=== PATIENT | male | born 1930 | race Caucasian/White ===

== ENCOUNTER 2017-03-03 11:09 | Inpatient (IN) | payer MEDICARE, BC ==
--- NOTE | 2017-03-03 11:49 | EDM.PDOC ---
ED HISTORY OF PRESENT ILLNESS - General Chief Complaint: Fever Stated Complaint: [facility] Time Seen by Provider: 03/03/17 11:40 Source: Reports: Patient, Family, RN notes reviewed History Limitations: Reports: No limitations - History of Present Illness INITIAL COMMENTS - FREE TEXT/NARRATIVE: 86-year-old gentleman presents emergency department day complaint of fever and increasing shortness of breath, he states he's been ill for about 24 hours he denies any other symptoms known history of Parkinson's - Related Data Allergies/ADRs: Allergies Allergy/AdvReac Type Severity Reaction Status Date / Time [place] And Derivatives Allergy Cannot Verified 03/08/16 03:20 Remember morphine AdvReac Hallucinati Verified 03/08/16 03:20 ons tomato [Tomato] AdvReac Acid Reflux Verified 03/08/16 03:20 Home Meds: Home Meds Calcium Citrate/Vitamin D3 [Calcitrate + Vit D Cap (315 MG/250 UNITS)] 1 tab PO DAILY 03/25/14 [History] Folic Acid 1 mg PO ASDIRECTED 03/25/14 [History] Methotrexate Sodium [Methotrexate] 7.5 mg IJ WEEKLY 03/25/14 [History] Metoprolol Tartrate 50 mg PO BID 03/25/14 [History] Simvastatin [Zocor] 20 mg PO DAILY 03/25/14 [History] Acetaminophen [Tylenol] 650 mg PO QID PRN 05/17/15 [History] Bisacodyl [Bisacodyl] 1 tab PO DAILY 03/03/17 [History] Captopril [Captopril] 0.5 tab PO BID 03/03/17 [History] Carbidopa/Levodopa [Carbidopa-Levo 25-100 MG ODT] 1 tab PO DAILY 03/03/17 [ History] Cholecalciferol (Vitamin D3) [Vitamin D3] 1 tab PO DAILY 03/03/17 [History] Folic Acid [Folic Acid] 1 tab PO DAILY 03/03/17 [History] Furosemide 1 tab PO DAILY 03/03/17 [History] Metoprolol Tartrate [Metoprolol Tartrate] 1 tab PO DAILY 03/03/17 [History] Metoprolol Tartrate [Metoprolol Tartrate] 1 tab PO DAILY 03/03/17 [History] Mirtazapine [Mirtazapine] 0.5 tab PO DAILY 03/03/17 [History] Polyethylene Glycol 3350 [Smoothlax] 1 packet PO DAILY 03/03/17 [History] Potassium Chloride [Klor-Con] 1 packet PO DAILY 03/03/17 [History] Spironolactone [Spironolactone] 0.5 tab PO DAILY 03/03/17 [History] Tamsulosin [Flomax] 1 tab PO DAILY 03/03/17 [History] predniSONE [Prednisone] 1 tab PO DAILY 03/03/17 [History] Past Medical History Neurological History: Reports: Parkinson's Other Neuro History: headaches, right frontotemporoparietal subdermal hematoma Other Dermatologic History: open sores on lower legs, scabs on legs - Past Surgical History Other HEENT Surgeries/Procedures: tooth pulled a week ago Other Musculoskeletal Surgeries/Procedures:: bilat knee replacement Social & Family History - Tobacco Use Smoking Status *Q: Unknown Ever Smoked Second Hand Smoke Exposure: No - Alcohol Use Days Per Week of Alcohol Use: 0 - Recreational Drug Use Recreational Drug Use: No ED ROS GENERAL - Review of Systems Review Of Systems: See Below Constitutional: Reports: fever, chills HEENT: Reports: No symptoms Respiratory: Reports: Shortness of Breath, Cough. Denies: Wheezing, Sputum Cardiovascular: Reports: No symptoms GI/Abdominal: Reports: No symptoms : Reports: no symptoms Musculoskeletal: Reports: no symptoms Skin: Reports: no symptoms Neurological: Reports: No Symptoms ED EXAM, GENERAL - Physical Exam Exam: See Below Free Text/Narrative:: General: Male, not in any distress, alert and oriented x3 HEENT: head is atraumatic normocephalic, eyes pupils equal round reactive to light, sclera clear no conjunctivitis appreciated. Ears blocked by cerumen bilaterally. Nose no septal deviation, nares are clear, no blood present. Mouth mucosa is moist and pink no erythema or exudate noted in soft palate, tongue is midline uvula is midline, dentition is intact. Neck: Supple no thyromegaly no tracheal deviation. Nodes: Cervical nodes subclavicular nodes nontender no palpable lymphadenopathy noted. Lungs: clear to auscultation bilaterally with symmetrical respirations, no adventitious noise appreciated. CV: Regular rate and rhythm S1 and S2 appreciated no murmurs rubs or gallops noted. Abdomen: Soft, nontender, no palpable masses or organomegaly appreciated, no distention no guarding bowel sounds are present, . Neuro: Cranial nerves II through XII grossly intact Skin: Warm and dry, intact Extremities: No lower extremity edema appreciated, Course - Vital Signs Last Recorded V/S: Last Vital Signs Temp 99.6 F 03/03/17 11:43 Pulse 126 H 03/03/17 12:30 Resp 15 03/03/17 12:30 BP 98/71 03/03/17 12:30 Pulse Ox 93 L 03/03/17 12:30 - Orders/Labs/Meds Orders: Active Orders 24 hr Category Date Time Status Peripheral IV Care [RC] . DIRECTED Care 03/03/17 12:50 Active Chest 2V [CR] Urgent Exams 03/03/17 11:45 Taken CULTURE BLOOD [BC] Stat Lab 03/03/17 11:45 Received CULTURE BLOOD [BC] Urgent Lab 03/03/17 11:55 Received INFLUENZA A+B AG SCREEN [RM] Urgent Lab 03/03/17 11:45 Uncollected UA W/MICROSCOPIC [URIN] Stat Lab 03/03/17 11:45 Uncollected Lactated Ringers [Ringers, Lactated] 1,000 ml Med 03/03/17 12:50 Active IV BOLUS Sodium Chloride 0.9% [Saline Flush] Med 03/03/17 12:50 Active 10 ml FLUSH ASDIRECTED PRN cefTRIAXone [Rocephin] 2 gm Med 03/03/17 12:52 Active Sodium Chloride 0.9% [Normal Saline] 50 ml IV ONETIME Peripheral IV Insertion Adult [OM.PC] Urgent Oth 03/03/17 12:50 Ordered Medication Orders Lactated Ringer's (Ringers, Lactated) 1,000 mls @ 999 mls/hr IV BOLUS ONE Stop: 03/03/17 13:50 Ceftriaxone Sodium 2 gm/ (Sodium Chloride) 50 mls @ 100 mls/hr IV ONETIME ONE Stop: 03/03/17 13:21 Sodium Chloride (Saline Flush) 10 ml FLUSH ASDIRECTED PRN PRN Reason: Keep Vein Open Labs: Laboratory Tests 03/03/17 03/03/17 03/03/17 Range/Units 11:45 11:45 11:45 WBC 10.6 (4.5-11.0) K/uL RBC 4.03 L (4.30-5.90) M/uL Hgb 14.9 (12.0-15.0) g/dL Hct 42.6 (40.0-54.0) % MCV 106 H (80-98) fL MCH 37 H (27-31) pg MCHC 35 (32-36) % Plt Count 135 L (150-400) K/uL Neut % (Auto) 89 H (36-66) % Lymph % (Auto) 6 L (24-44) % [place] % (Auto) 4 (2-6) % Eos % (Auto) 0 L (2-4) % Baso % (Auto) 0 (0-1) % PT 12.7 H (9.5-12.0) sec INR 1.19 (0.80-1.20) APTT 30.1 (27.0-36.0) sec Sodium 142 (140-148) mmol/L Potassium 4.3 (3.6-5.2) mmol/L Chloride 104 (100-108) mmol/L Carbon Dioxide 26 (21-32) mmol/L Anion Gap 12.3 (5.0-14.0) mmol/L BUN 24 H (7-18) mg/dL Creatinine 1.3 (0.8-1.3) mg/dL Est Cr Clr Drug Dosing 44.87 mL/min Estimated GFR (MDRD) 53 L (>60) Glucose 116 H (74-106) mg/dL Lactic Acid (0.4-2.0) mmol/L Calcium 8.3 L (8.5-10.1) mg/dL Total Bilirubin 1.8 H (0.2-1.0) mg/dL AST 23 (15-37) U/L ALT 13 (12-78) U/L Alkaline Phosphatase 44 L (46-116) U/L Total Protein 7.0 (6.4-8.2) g/dL Albumin 3.3 L (3.4-5.0) g/dL Globulin 3.7 H (2.3-3.5) g/dL Albumin/Globulin Ratio 0.9 L (1.2-2.2) 03/03/17 Range/Units 11:45 WBC (4.5-11.0) K/uL RBC (4.30-5.90) M/uL Hgb (12.0-15.0) g/dL Hct (40.0-54.0) % MCV (80-98) fL MCH (27-31) pg MCHC (32-36) % Plt Count (150-400) K/uL Neut % (Auto) (36-66) % Lymph % (Auto) (24-44) % [place] % (Auto) (2-6) % Eos % (Auto) (2-4) % Baso % (Auto) (0-1) % PT (9.5-12.0) sec INR (0.80-1.20) APTT (27.0-36.0) sec Sodium (140-148) mmol/L Potassium (3.6-5.2) mmol/L Chloride (100-108) mmol/L Carbon Dioxide (21-32) mmol/L Anion Gap (5.0-14.0) mmol/L BUN (7-18) mg/dL Creatinine (0.8-1.3) mg/dL Est Cr Clr Drug Dosing mL/min Estimated GFR (MDRD) (>60) Glucose (74-106) mg/dL Lactic Acid 3.3 H (0.4-2.0) mmol/L Calcium (8.5-10.1) mg/dL Total Bilirubin (0.2-1.0) mg/dL AST (15-37) U/L ALT (12-78) U/L Alkaline Phosphatase (46-116) U/L Total Protein (6.4-8.2) g/dL Albumin (3.4-5.0) g/dL Globulin (2.3-3.5) g/dL Albumin/Globulin Ratio (1.2-2.2) Meds: Medications Generic Name Dose Route Start Last Admin Trade Name Freq PRN Reason Stop Dose Admin Lactated Ringer's 1,000 mls @ 999 mls/hr 03/03/17 12:50 Ringers, Lactated IV 03/03/17 13:50 BOLUS ONE Ceftriaxone Sodium 2 gm/ 50 mls @ 100 mls/hr 03/03/17 12:52 Sodium Chloride IV 03/03/17 13:21 ONETIME ONE Sodium Chloride 10 ml 03/03/17 12:50 Saline Flush FLUSH ASDIRECTED PRN Keep Vein Open Departure - Departure Time of Disposition: 12:58 Disposition: Admitted As Inpatient 68 Condition: fair Clinical Impression: Pneumonia Qualifiers: Pneumonia type: due to unspecified organism Laterality: right Lung location: lower lobe of lung Qualified Code(s): J18.1 - Lobar pneumonia, unspecified organism Forms: ED Department Discharge - My Orders Last 24 Hours: My Active Orders 03/03/17 11:45 Chest 2V [CR] Urgent CULTURE BLOOD [BC] Stat INFLUENZA A+B AG SCREEN [RM] Urgent UA W/MICROSCOPIC [URIN] Stat 03/03/17 11:55 CULTURE BLOOD [BC] Urgent 03/03/17 12:50 Peripheral IV Care [RC] . DIRECTED Lactated Ringers [Ringers, Lactated] 1,000 ml IV BOLUS Sodium Chloride 0.9% [Saline Flush] 10 ml FLUSH ASDIRECTED PRN Peripheral IV Insertion Adult [OM.PC] Urgent 03/03/17 12:52 cefTRIAXone [Rocephin] 2 gm Sodium Chloride 0.9% [Normal Saline] 50 ml IV ONETIME - Assessment/Plan Last 24 Hours: My Active Orders 03/03/17 11:45 Chest 2V [CR] Urgent CULTURE BLOOD [BC] Stat INFLUENZA A+B AG SCREEN [RM] Urgent UA W/MICROSCOPIC [URIN] Stat 03/03/17 11:55 CULTURE BLOOD [BC] Urgent 03/03/17 12:50 Peripheral IV Care [RC] . DIRECTED Lactated Ringers [Ringers, Lactated] 1,000 ml IV BOLUS Sodium Chloride 0.9% [Saline Flush] 10 ml FLUSH ASDIRECTED PRN Peripheral IV Insertion Adult [OM.PC] Urgent 03/03/17 12:52 cefTRIAXone [Rocephin] 2 gm Sodium Chloride 0.9% [Normal Saline] 50 ml IV ONETIME Plan: Assessment Acuity = acute Site and laterality = skilled nursing-acquired pneumonia complicated patient with known history of Parkinson syndrome Etiology = probable bacterial cause Manifestations = hypoxic, fever Location of injury = home Lab values = platelets low at 135 consistent thrombocytopenia BUN elevated at 24 lactic acid elevated at 3.3 consistent lactic acidosis total bilirubin elevated at 1.8 consistent hyperbilirubinemia albumin low at 3.3 consistent with hypo-bilirubinemia, chest x-ray demonstrates an infiltrate right lower lobe official read radiology is pending, CURB 65 score is 3 Plan Call discuss case with hospitalist clinical practitioner he agreed to come and evaluate the patient in the ED for admission Patient was in agreement with the plan all questions were answered, This note was dictated using [employer] voice recognition software please call with any questions.
[2017-03-03] MEDS ORDERED: Sodium Chloride 0.9% 10 ML Syringe FLUSH PRN (12:50)
[2017-03-03] MEDS ORDERED: Lactated Ringers 1,000 ML IV ONE (12:50)
[2017-03-03] MEDS ORDERED: cefTRIAXone 2 GM in Sodium Chloride 0.9% 50 ML IV ONE (12:52)
--- NOTE | 2017-03-03 14:20 | PCM.HP ---
H&P History of Present Illness - General Date of Service: 03/03/17 Admit Problem/Dx: Admission Diagnosis/Problem Admission Diagnosis/Problem Pneumonia Source of Information: Patient, Family, Provider History Limitations: Reports: No limitations - History of Present Illness Initial Comments - Free Text/Narative: Tae presents to the emergency room today from [facility] with complaints of fever for 24 hours and progressive cough. He reports that he was feeling about his usual state of health until yesterday when he started coughing. Initially this was dry but has become productive with some sputum. Sputum has been yellow in color. He's also had a temperature elevation with some higher than 101 for the past 24 hours. He feels weak and has not had any appetite. He's been sleeping nearly constantly and requires heavy assistance of 2 people to get out of bed. At baseline he can get around with minimal assist from one person. He does not report any chest pain, abdominal pain or change in urinary habits. He did report some diarrhea earlier in the week but this has resolved. He feels short of breath at rest and more short of breath with any activity. No lower extremity edema or orthopnea. No obvious sick contacts. Workup in the emergency room has suggested sepsis with an elevated lactic acid, hypotension, tachycardia and evidence for right lung pneumonia. He has received antibiotics and IV fluids. He will be admitted to the intensive care unit. Cultures have been obtained. - Related Data Allergies/Adverse Reactions: Allergies Allergy/AdvReac Type Severity Reaction Status Date / Time [place] And Derivatives Allergy Cannot Verified 03/08/16 03:20 Remember morphine AdvReac Hallucinati Verified 03/08/16 03:20 ons tomato [Tomato] AdvReac Acid Reflux Verified 03/08/16 03:20 Home Medications: Home Meds Folic Acid 1 mg PO DAILY 03/25/14 [History] Metoprolol Tartrate 50 mg PO BID 03/25/14 [History] Acetaminophen [Tylenol] 650 mg PO QID PRN 05/17/15 [History] Bisacodyl [Bisacodyl] 5 mg PO DAILY 03/03/17 [History] Captopril [Captopril] 6.25 mg PO BID 03/03/17 [History] Carbidopa/Levodopa [Sinemet 25-100 mg Tablet] 1 tab PO TID 03/03/17 [History] Cholecalciferol (Vitamin D3) [Vitamin D3] 1,000 units PO DAILY 03/03/17 [History ] Folic Acid [Folic Acid] 1 mg PO DAILY 03/03/17 [History] Furosemide 40 mg PO DAILY 03/03/17 [History] Hydrocodone/Acetaminophen [Hydrocodon-Acetaminophen 5-325] 1 each PO Q4H PRN [History] Methotrexate Sodium [[place]] 7.5 mg PO WEEKLY 03/03/17 [History] Metoprolol Tartrate [Metoprolol Tartrate] 25 mg PO BID 03/03/17 [History] Mirtazapine [Mirtazapine] 7.5 mg PO BEDTIME 03/03/17 [History] Polyethylene Glycol 3350 [Smoothlax] 17 g PO DAILY 03/03/17 [History] Potassium Chloride 20 meq PO DAILY 03/03/17 [History] Sennosides/Docusate Sodium [Senna-Docusate Sodium] 2 tab PO BID 03/03/17 [ History] Spironolactone [Spironolactone] 12.5 tab PO DAILY 03/03/17 [History] Tamsulosin [Flomax] 0.4 mg PO DAILY 03/03/17 [History] predniSONE [Prednisone] 10 mg PO DAILY 03/03/17 [History] Past Medical History Cardiovascular History: Reports: Hypertension Gastrointestinal History: Reports: Chronic constipation Genitourinary History: Reports: BPH Musculoskeletal History: Reports: RA Neurological History: Reports: Parkinson's, Other (see below) (Normal pressure hydrocephalus) Other Neuro History: headaches, right frontotemporoparietal subdermal hematoma Psychiatric History: Reports: Depression Other Dermatologic History: open sores on lower legs, scabs on legs - Past Surgical History Other HEENT Surgeries/Procedures: tooth pulled a week ago Other Musculoskeletal Surgeries/Procedures:: bilat knee replacement Social & Family History - Family History Musculoskeletal: Reports: RA (Daughter) - Tobacco Use Smoking Status *Q: Unknown Ever Smoked Second Hand Smoke Exposure: No - Caffeine Use Caffeine Use: Reports: None - Alcohol Use Days Per Week of Alcohol Use: 0 - Recreational Drug Use Recreational Drug Use: No H&P Review of Systems - Review of Systems: Review Of Systems: See Below Free Text/Narrative: A complete 12 point review of systems was obtained. Pertinent positives and negatives are noted in the history of present illness. All other systems were reviewed and were negative except as noted. Exam - Exam Exam: See Below - Vital Signs Vital Signs: Last Vital Signs Temp 37.2 C 03/03/17 13:38 Pulse 77 03/03/17 13:38 Resp 15 03/03/17 13:38 BP 97/70 03/03/17 13:38 Pulse Ox 94 L 03/03/17 13:38 Weight: 99.6 kg - Exam Quality Assessment: supplemental oxygen. No: urinary catheter General: alert, oriented, cooperative, mild distress HEENT: Conjunctiva clear. No: Mucosa moist & pink (dry), Scleral icterus Neck: supple, trachea midline. No: lymphadenopathy, thyromegaly Lungs: Normal respiratory effort, Decreased breath sounds (Right lung base), Crackles (Right lung base) Cardiovascular: regular rhythm, tachycardia. No: systolic murmur Abdomen: normal bowel sounds, soft. No: distention, tenderness Back Exam: normal inspection, full range of motion Extremities: normal inspection, normal pulses. No: cyanosis, edema Peripheral Pulses: 2+: dorsalis pedis (L), dorsalis pedis (R) Skin: warm, dry, intact Neuro Extensive - Mental Status: alert, slow response to commands Neuro Extensive - Motor, Sensory, Reflexes: CN II-XII intact, abnormal motor, tremor (Fine tremor of both hands at rest). No: dysarthria Psychiatric: alert, normal affect, other (Slightly lethargic) - Patient Data Lab Results last 24 hrs: Laboratory Results - last 24 hr 03/03/17 03/03/17 03/03/17 Range/Units 11:45 11:45 11:45 WBC 10.6 (4.5-11.0) K/uL RBC 4.03 L (4.30-5.90) M/uL Hgb 14.9 (12.0-15.0) g/dL Hct 42.6 (40.0-54.0) % MCV 106 H (80-98) fL MCH 37 H (27-31) pg MCHC 35 (32-36) % Plt Count 135 L (150-400) K/uL Neut % (Auto) 89 H (36-66) % Lymph % (Auto) 6 L (24-44) % [place] % (Auto) 4 (2-6) % Eos % (Auto) 0 L (2-4) % Baso % (Auto) 0 (0-1) % PT 12.7 H (9.5-12.0) sec INR 1.19 (0.80-1.20) APTT 30.1 (27.0-36.0) sec Sodium 142 (140-148) mmol/L Potassium 4.3 (3.6-5.2) mmol/L Chloride 104 (100-108) mmol/L Carbon Dioxide 26 (21-32) mmol/L Anion Gap 12.3 (5.0-14.0) mmol/L BUN 24 H (7-18) mg/dL Creatinine 1.3 (0.8-1.3) mg/dL Est Cr Clr Drug Dosing 44.87 mL/min Estimated GFR (MDRD) 53 L (>60) Glucose 116 H (74-106) mg/dL Lactic Acid (0.4-2.0) mmol/L Calcium 8.3 L (8.5-10.1) mg/dL Total Bilirubin 1.8 H (0.2-1.0) mg/dL AST 23 (15-37) U/L ALT 13 (12-78) U/L Alkaline Phosphatase 44 L (46-116) U/L Total Protein 7.0 (6.4-8.2) g/dL Albumin 3.3 L (3.4-5.0) g/dL Globulin 3.7 H (2.3-3.5) g/dL Albumin/Globulin Ratio 0.9 L (1.2-2.2) /15/17 Range/Units 11:45 WBC (4.5-11.0) K/uL RBC (4.30-5.90) M/uL Hgb (12.0-15.0) g/dL Hct (40.0-54.0) % MCV (80-98) fL MCH (27-31) pg MCHC (32-36) % Plt Count (150-400) K/uL Neut % (Auto) (36-66) % Lymph % (Auto) (24-44) % [place] % (Auto) (2-6) % Eos % (Auto) (2-4) % Baso % (Auto) (0-1) % PT (9.5-12.0) sec INR (0.80-1.20) APTT (27.0-36.0) sec Sodium (140-148) mmol/L Potassium (3.6-5.2) mmol/L Chloride (100-108) mmol/L Carbon Dioxide (21-32) mmol/L Anion Gap (5.0-14.0) mmol/L BUN (7-18) mg/dL Creatinine (0.8-1.3) mg/dL Est Cr Clr Drug Dosing mL/min Estimated GFR (MDRD) (>60) Glucose (74-106) mg/dL Lactic Acid 3.3 H (0.4-2.0) mmol/L Calcium (8.5-10.1) mg/dL Total Bilirubin (0.2-1.0) mg/dL AST (15-37) U/L ALT (12-78) U/L Alkaline Phosphatase (46-116) U/L Total Protein (6.4-8.2) g/dL Albumin (3.4-5.0) g/dL Globulin (2.3-3.5) g/dL Albumin/Globulin Ratio (1.2-2.2) Result Diagrams: 03/03/17 11:45 03/03/17 11:45 Imaging Impressions last 24 hrs: Chest x-ray - images personally reviewed - there appears to be a right lower lung infiltrate with some linear atelectasis. Fair amount of bowel gas noted. No definite mass and no evidence for congestive heart failure. Heart size is normal. *Q Meaningful Use (ADM) - VTE *Q VTE Criteria *Q: - Stroke *Q Stroke Criteria *Q: - AMI *Q AMI Criteria *Q: - Problem List (1) Right lower lobe pneumonia SNOMED Code(s): 088491782 ICD Code: J18.1 - LOBAR PNEUMONIA, UNSPECIFIED ORGANISM Status: Acute Current Visit: Yes Qualifiers: Pneumonia type: due to unspecified organism Qualified Code(s): J18.1 - Lobar pneumonia, unspecified organism (2) Sepsis SNOMED Code(s): 90419012 ICD Code: A41.9 - SEPSIS, UNSPECIFIED ORGANISM Status: Acute Current Visit: Yes Qualifiers: Sepsis type: sepsis due to unspecified organism Qualified Code(s): A41.9 - Sepsis, unspecified organism (3) Parkinsons disease SNOMED Code(s): 24116195 ICD Code: G20 - PARKINSON'S DISEASE Status: Chronic Current Visit: Yes (4) Normal pressure hydrocephalus SNOMED Code(s): 51881523 ICD Code: G91.2 - (IDIOPATHIC) NORMAL PRESSURE HYDROCEPHALUS Status: Chronic Current Visit: Yes (5) Essential hypertension SNOMED Code(s): 02429967 ICD Code: I10 - ESSENTIAL (PRIMARY) HYPERTENSION Status: Chronic Current Visit: Yes Problem List Initiated/Reviewed/Updated: Yes Orders Last 24hrs: Active Orders 24 hr Category Date Time Status Patient Status Manage Transfer [TRANSFER] Routine ADT 03/03/17 13:59 Ordered Peripheral IV Care [RC] . DIRECTED Care 03/03/17 12:50 Active Chest 2V [CR] Urgent Exams 03/03/17 11:45 Taken CULTURE BLOOD [BC] Stat Lab 03/03/17 11:45 Received CULTURE BLOOD [BC] Urgent Lab 03/03/17 11:55 Received INFLUENZA A+B AG SCREEN [RM] Urgent Lab 03/03/17 11:45 Uncollected UA W/MICROSCOPIC [URIN] Stat Lab 03/03/17 11:45 Uncollected Sodium Chloride 0.9% [Saline Flush] Med 03/03/17 12:50 Active 10 ml FLUSH ASDIRECTED PRN Peripheral IV Insertion Adult [OM.PC] Urgent Oth 03/03/17 12:50 Ordered Resuscitation Status Routine Resus Stat 03/03/17 14:02 Ordered Medication Orders Sodium Chloride (Saline Flush) 10 ml FLUSH ASDIRECTED PRN PRN Reason: Keep Vein Open Last Admin: 03/03/17 13:08 Dose: 10 ml Assessment/Plan Comment:: Assessment and plan - Right lung pneumonia with sepsis - evidence for sepsis includes hypotension, tachycardia, elevated lactic acidosis and hypoxic respiratory failure. He is receiving his 30 mL per kilogram IV fluid bolus. Cultures have been obtained and antibiotics have been initiated. Patient remains alert and interactive. -Admit to the intensive care unit -Antibiotic coverage with ceftriaxone and levofloxacin -Complete 3 L IV fluid bolus -Repeat lactic acid -Nebulizers -Supplemental oxygen -Followup cultures -Hold antihypertensive medications Parkinson's disease - significant limitation of functional status at baseline. He is nearly bedbound other than short walks once or twice a day. -Continue home medications -Start physical therapy as soon as sepsis resolves Normal pressure hydrocephalus - Further complicates his functional status with balance issues. -Physical therapy as able Maintenance issues - - DVT prophylaxis - enoxaparin - GI prophylaxis - PPI - Nutrition - regular diet - [place] catheter - not indicated CODE STATUS - full treatment without intubation and without ACLS Admission justification - This patient will be admitted for inpatient services and is medically appropriate meeting medical necessity for inpatient admission as outlined in my documentation. I reasonably expect the patient will require inpatient services that span a period time over 2 midnights. I reasonably expect this patient to be discharged or transferred within 96 hours after admission to the [facility]. Disposition - anticipate discharge back to the half-way after the hospital stay Primary care physician - Dr. Arash Garcia M.D.
[2017-03-03] MEDS ORDERED: Albuterol 0.083% 2.5 MG/3 ML Neb Soln NEB PRN (14:53)
[2017-03-03] MEDS ORDERED: Sodium Chloride 0.9% 1,000 ML IV SCH ×2 (14:53→17:30)
[2017-03-03] MEDS ORDERED: Ondansetron 4 MG Tab.DIS PO PRN (14:53)
[2017-03-03] MEDS ORDERED: Ondansetron 4 MG/2 ML SDV IV PRN (14:53)
[2017-03-03] MEDS ORDERED: Acetaminophen/HYDROcodone 325-5 MG Tab PO PRN (14:53)
[2017-03-03] MEDS ORDERED: Acetaminophen 325 MG Tab PO PRN (14:53)
[2017-03-03] MEDS: Sodium Chloride 0.9% 1,000 ML IV SCH (15:36)
[2017-03-03] MEDS: Levofloxacin/Dextrose 5%-Water 750 MG in Premix Bag 1 BAG IV SCH (15:42)
[2017-03-03] MEDS: Carbidopa/Levodopa 25-100 MG Tab PO SCH ×2 (15:42→21:08)
[2017-03-03] MEDS: Albuterol/Ipratropium 3.0-0.5 MG/3 ML Neb Soln NEB SCH ×2 (15:52→21:08)
[2017-03-03] MEDS ORDERED: Hydrocortisone Sodium Succinate 100 MG/2 ML SDV IVPUSH ONE (16:00)
[2017-03-03] MEDS: Mirtazapine 15 MG Tab PO SCH (21:08)
[2017-03-03] MEDS ORDERED: Metoprolol Succinate 25 MG Tab.ER PO ONE (22:06)
[2017-03-03] MEDS ORDERED: Metoprolol Tartrate 25 MG Tab PO ONE (22:11)
[2017-03-04] MEDS: Sodium Chloride 0.9% 1,000 ML IV SCH ×3 (01:05→21:49)
[2017-03-04] MEDS: Albuterol/Ipratropium 3.0-0.5 MG/3 ML Neb Soln NEB SCH (07:12)
[2017-03-04] MEDS: Pantoprazole 40 MG Tab.CR PO SCH (07:46)
[2017-03-04] MEDS ORDERED: Levalbuterol HCl 1.25 MG/3 ML Neb NEB PRN (08:11)
--- NOTE | 2017-03-04 08:30 | PCM.PN ---
- General Info Date of Service: 03/04/17 Functional Status: Reports: pain controlled, tolerating diet, urinating - Review of Systems General: Reports: Weakness Pulmonary: Reports: shortness of breath, cough, sputum Gastrointestinal: Denies: Abdominal pain Systems Review Comment:: Blood pressures did finally improve after several fluid boluses overnight. He is up about 3 pounds today compared to the time of admission. Heart rate has been up and down, especially after nebulizers. Lactic acid level has improved from the emergency room but has not normalized yet. He was febrile overnight. Respiratory status remains compromised and he requires a fair amount of supplemental oxygen. No complaints of chest pain or abdominal pain today. Appetite has been decreased. Cultures are pending. Tolerating current antibiotics. - Patient Data Vitals - most recent: Last Vital Signs Temp 37.6 C 03/04/17 08:00 Pulse 163 H 03/04/17 08:00 Resp 30 H 03/04/17 08:00 BP 122/90 03/04/17 08:00 Pulse Ox 96 03/04/17 08:00 Weight - most recent: 99.6 kg I&O - last 24 hours: Intake & Output 03/03/17 03/04/17 03/04/17 22:59 06:59 14:59 Intake Total 1427 1689 Balance 1427 1689 Lab Results last 24 hrs: Laboratory Results - last 24 hr 03/03/17 03/03/17 03/04/17 Range/Units 17:08 23:00 05:15 WBC 6.5 (4.5-11.0) K/uL RBC 3.56 L (4.30-5.90) M/uL Hgb 12.7 D (12.0-15.0) g/dL Hct 38.8 L (40.0-54.0) % MCV 109 H (80-98) fL MCH 36 H (27-31) pg MCHC 33 (32-36) % Plt Count 111 L (150-400) K/uL Sodium (140-148) mmol/L Potassium (3.6-5.2) mmol/L Chloride (100-108) mmol/L Carbon Dioxide (21-32) mmol/L Anion Gap (5.0-14.0) mmol/L BUN (7-18) mg/dL Creatinine (0.8-1.3) mg/dL Est Cr Clr Drug Dosing mL/min Estimated GFR (MDRD) (>60) Glucose (74-106) mg/dL Lactic Acid 2.4 H 2.8 H (0.4-2.0) mmol/L Calcium (8.5-10.1) mg/dL 03/04/17 03/04/17 Range/Units 05:15 05:15 WBC (4.5-11.0) K/uL RBC (4.30-5.90) M/uL Hgb (12.0-15.0) g/dL Hct (40.0-54.0) % MCV (80-98) fL MCH (27-31) pg MCHC (32-36) % Plt Count (150-400) K/uL Sodium 142 (140-148) mmol/L Potassium 4.4 (3.6-5.2) mmol/L Chloride 108 (100-108) mmol/L Carbon Dioxide 25 (21-32) mmol/L Anion Gap 8.6 (5.0-14.0) mmol/L BUN 22 H (7-18) mg/dL Creatinine 1.2 (0.8-1.3) mg/dL Est Cr Clr Drug Dosing 48.81 mL/min Estimated GFR (MDRD) 58 L (>60) Glucose 98 (74-106) mg/dL Lactic Acid 2.7 H (0.4-2.0) mmol/L Calcium 7.6 L (8.5-10.1) mg/dL Pedro Results last 24 hrs: Microbiology 03/03/17 16:43 Gram Stain - Final Sputum - Expectorated 03/03/17 14:52 Influenza Type A Antigen Screen - Final Nasopharyngeal Swab - Nare, Unspecified NEGATIVE INFLUENZA A VIRUS AG Influenza Type B Antigen Screen - Final NEGATIVE INFLUENZA B VIRUS AG Med Orders - Current: Current Medications Acetaminophen (Tylenol) 650 mg PO Q4H PRN PRN Reason: Pain (Mild 1-3)/fever Last Admin: 03/04/17 07:45 Dose: 650 mg Hydrocodone Bitart/Acetaminophen ([place] 325-5 Mg) 1 tab PO Q4H PRN PRN Reason: Pain Carbidopa/Levodopa (Sinemet 25-100 Mg) 1 tab PO TID [facility] Last Admin: 03/03/17 21:08 Dose: 1 tab Digoxin (Lanoxin) 125 mcg IVPUSH ONETIME ONE Stop: 03/04/17 08:13 Enoxaparin Sodium (Lovenox) 40 mg SUBCUT DAILY [facility] Folic Acid (Folic Acid) 1 mg PO DAILY [facility] Levofloxacin/Dextrose 750 mg/ (Premix) 150 mls @ 100 mls/hr IV Q24H [facility] Last Admin: 03/03/17 15:42 Dose: 100 mls/hr Sodium Chloride (Normal Saline) 1,000 mls @ 125 mls/hr IV ASDIRECTED [facility] Last Admin: 03/04/17 01:05 Dose: 125 mls/hr Ceftriaxone Sodium 2 gm/ (Sodium Chloride) 50 mls @ 100 mls/hr IV Q24H [facility] Levalbuterol HCl (Xopenex) 1.25 mg NEB QIDRT [facility] Levalbuterol HCl (Xopenex) 1.25 mg NEB Q2H PRN PRN Reason: Shortness of Breath Metoprolol Tartrate (Lopressor) 50 mg PO Q12HR [facility] Mirtazapine (Remeron) 7.5 mg PO BEDTIME [facility] Last Admin: 03/03/17 21:08 Dose: 7.5 mg Ondansetron HCl (Zofran Odt) 4 mg PO Q6H PRN PRN Reason: Nausea able to take PO Ondansetron HCl (Zofran) 4 mg IV Q6H PRN PRN Reason: Nausea/Vomiting Pantoprazole Sodium (Protonix) 40 mg PO ACBREAKFAST [facility] Last Admin: 03/04/17 07:46 Dose: 40 mg Prednisone (Prednisone) 20 mg PO DAILY [facility] Senna/Docusate Sodium (Senna Plus) 2 tab PO BID [facility] Last Admin: 03/03/17 21:07 Dose: 2 tab Sodium Chloride (Saline Flush) 10 ml FLUSH ASDIRECTED PRN PRN Reason: Keep Vein Open Last Admin: 03/03/17 13:08 Dose: 10 ml Tamsulosin HCl (Flomax) 0.4 mg PO DAILY [facility] Discontinued Medications Albuterol (Proventil Neb Soln) 2.5 mg NEB Q4H PRN PRN Reason: Shortness Of Breath/wheezing Albuterol/Ipratropium (Duoneb 3.0-0.5 Mg/3 Ml) 3 ml NEB QIDRT [facility] Last Admin: 03/04/17 07:12 Dose: 3 ml Hydrocortisone Sodium Succinate (Solu-Cortef) 100 mg IVPUSH ONETIME ONE Stop: 03/03/17 16:01 Last Admin: 03/03/17 15:52 Dose: 100 mg Lactated Ringer's (Ringers, Lactated) 1,000 mls @ 999 mls/hr IV BOLUS ONE Stop: 03/03/17 13:50 Last Admin: 03/03/17 13:08 Dose: 999 mls/hr Ceftriaxone Sodium 2 gm/ (Sodium Chloride) 50 mls @ 100 mls/hr IV ONETIME ONE Stop: 03/03/17 13:21 Last Admin: 03/03/17 13:08 Dose: 100 mls/hr Sodium Chloride (Normal Saline) 1,000 mls @ 999 mls/hr IV ASDIRECTED [facility] Stop: 03/03/17 16:54 Last Admin: 03/03/17 15:04 Dose: 999 mls/hr Sodium Chloride (Normal Saline) 1,000 mls @ 999 mls/hr IV ASDIRECTED [facility] Stop: 03/03/17 18:31 Last Admin: 03/03/17 18:05 Dose: 999 mls/hr Metoprolol Tartrate (Lopressor) 25 mg PO ONETIME ONE Stop: 03/03/17 22:12 Last Admin: 03/03/17 22:23 Dose: 25 mg - Exam Quality Assessment: supplemental oxygen. No: urine catheter General: alert, oriented, cooperative, no acute distress Neck: supple Lungs: Decreased breath sounds (both bases, right > left), Crackles (both bases , R>L) Cardiovascular: Irregular Rhythm, Tachycardia. No: Murmurs Abdomen: bowel sounds present, soft, no tenderness, no distension Extremities: no edema, no cyanosis Skin: warm, dry Psy/Mental Status: alert, normal affect - Problem List & Annotations (1) Right lower lobe pneumonia SNOMED Code(s): 810473332 Code(s): J18.1 - LOBAR PNEUMONIA, UNSPECIFIED ORGANISM Status: Acute Current Visit: Yes Qualifiers: Pneumonia type: due to unspecified organism Qualified Code(s): J18.1 - Lobar pneumonia, unspecified organism (2) Sepsis SNOMED Code(s): 48510560 Code(s): A41.9 - SEPSIS, UNSPECIFIED ORGANISM Status: Acute Current Visit : Yes Qualifiers: Sepsis type: sepsis due to unspecified organism Qualified Code(s): A41.9 - Sepsis, unspecified organism (3) Parkinsons disease SNOMED Code(s): 60913455 Code(s): G20 - PARKINSON'S DISEASE Status: Chronic Current Visit: Yes (4) Normal pressure hydrocephalus SNOMED Code(s): 17027591 Code(s): G91.2 - (IDIOPATHIC) NORMAL PRESSURE HYDROCEPHALUS Status: Chronic Current Visit: Yes (5) Essential hypertension SNOMED Code(s): 61931224 Code(s): I10 - ESSENTIAL (PRIMARY) HYPERTENSION Status: Chronic Current Visit: Yes - Problem List Review Problem List Initiated/Reviewed/Updated: Yes - My Orders Last 24 Hours: My Active Orders 03/03/17 14:02 Resuscitation Status Routine 03/03/17 14:53 Patient Status [ADT] Routine Bedrest Bedside Commode [RC] ASDIRECTED Cardiac Monitoring [RC] CONTINUOUS Height and Weight [RC] DAILY Intake and Output [RC] QSHIFT Notify Provider Vital Signs [RC] ASDIRECTED Oxygen Therapy [RC] Q12H RT Aerosol Therapy [RC] ASDIRECTED VTE/DVT Education [RC] Per Unit Routine Vital Signs [RC] Q2HR Acetaminophen [Tylenol] 650 mg PO Q4H PRN Ondansetron [Zofran ODT] 4 mg PO Q6H PRN Ondansetron [Zofran] 4 mg IV Q6H PRN Sodium Chloride 0.9% [Normal Saline] 1,000 ml IV ASDIRECTED 03/03/17 16:00 Levofloxacin/Dextrose 5%-Water [Levaquin in D5W 750 MG/150 ML] 750 mg Premix Bag 1 bag IV Q24H 03/03/17 16:43 CULTURE RESPIRATORY + SMEAR [RM] Routine 03/03/17 Dinner Regular Diet [DIET] 03/04/17 07:30 Pantoprazole [ProTONIX] 40 mg PO ACBREAKFAST 03/04/17 08:11 Levalbuterol HCl [Xopenex] 1.25 mg NEB Q2H PRN 03/04/17 08:12 RT Aerosol Therapy [RC] ASDIRECTED Digoxin [Lanoxin] 125 mcg IVPUSH ONETIME ONE 03/04/17 08:15 Metoprolol Tartrate [Lopressor] 50 mg PO Q12HR 03/04/17 08:26 Vancomycin 2 gm Sodium Chloride 0.9% [Normal Saline] 250 ml IV ONETIME 03/04/17 08:28 methylPREDNISolone Sod Succ [Solu-MEDROL] 125 mg IVPUSH ONETIME ONE 03/04/17 09:00 Enoxaparin [Lovenox] 40 mg SUBCUT DAILY 03/04/17 11:00 Levalbuterol HCl [Xopenex] 1.25 mg NEB QIDRT 03/04/17 14:00 cefTRIAXone [Rocephin] 2 gm Sodium Chloride 0.9% [Normal Saline] 50 ml IV Q24H 03/04/17 14:30 methylPREDNISolone Sod Succ [Solu-MEDROL] 62.5 mg IVPUSH Q6H 03/04/17 21:00 Vancomycin 1.5 gm Sodium Chloride 0.9% [Normal Saline] 250 ml IV Q12H 03/05/17 05:00 BASIC METABOLIC PANEL,BMP [CHEM] Timed CBC W/O DIFF,HEMOGRAM [HEME] Timed (1) - Plan Plan:: Assessment and plan - Right lung pneumonia with sepsis and acute hypoxic respiratory failure - evidence for sepsis has been decreasing. Cultures are pending. Tolerating current antibiotics. Still has significant respiratory compromise. Gram stain from sputum culture showed gram-positive cocci. -Add vancomycin -Continue Antibiotic coverage with ceftriaxone and levofloxacin -Lactic acid in the morning -Nebulizers -Supplemental oxygen -Followup cultures -Hold antihypertensive medications Paroxysmal atrial fibrillation - heart rate jumped up adamantly overnight and again this morning. Did respond nicely to beta anibal. -Restart beta anibal as blood pressure allows -Digoxin as needed Parkinson's disease - significant limitation of functional status at baseline. He is nearly bedbound other than short walks once or twice a day. -Continue home medications -Start physical therapy as soon as sepsis resolves Normal pressure hydrocephalus - Further complicates his functional status with balance issues. -Physical therapy as able Maintenance issues - - DVT prophylaxis - enoxaparin - GI prophylaxis - PPI - Nutrition - regular diet Disposition - anticipate discharge back to the [facility] after the hospital stay Mike Garcia M.D.
[2017-03-04] MEDS: Tamsulosin 0.4 MG Cap.ER PO SCH (08:36)
[2017-03-04] MEDS: Folic Acid 1 MG Tab PO SCH (08:36)
[2017-03-04] MEDS: Enoxaparin 40 MG/0.4 ML Syringe SUBCUT SCH (08:37)
[2017-03-04] MEDS: Carbidopa/Levodopa 25-100 MG Tab PO SCH ×3 (08:37→20:36)
[2017-03-04] MEDS: predniSONE 20 MG Tab PO SCH (08:37)
[2017-03-04] MEDS ORDERED: Benzonatate 100 MG Cap PO PRN (08:52)
[2017-03-04] MEDS ORDERED: methylPREDNISolone Sodium Succinate 125 MG/2 ML SDV IVPUSH ONE (09:00)
[2017-03-04] MEDS ORDERED: Digoxin 500 MCG/2 ML Amp IVPUSH ONE (09:00)
[2017-03-04] MEDS: Metoprolol Tartrate 50 MG Tab PO SCH ×2 (09:01→20:35)
[2017-03-04] MEDS: guaiFENesin/Dextromethorphan 100-10 MG/5 ML Soln 10 ML Cup PO PRN ×2 (09:45→15:16)
[2017-03-04] MEDS: Levalbuterol HCl 1.25 MG/3 ML Neb NEB SCH ×3 (11:11→20:35)
[2017-03-04] MEDS: cefTRIAXone 2 GM in Sodium Chloride 0.9% 50 ML IV SCH (13:35)
[2017-03-04] MEDS: methylPREDNISolone Sodium Succinate 125 MG/2 ML SDV IVPUSH SCH ×2 (14:23→20:35)
[2017-03-04] MEDS: Levofloxacin/Dextrose 5%-Water 750 MG in Premix Bag 1 BAG IV SCH (15:20)
[2017-03-04] MEDS: Mirtazapine 15 MG Tab PO SCH (20:36)
[2017-03-05] MEDS: methylPREDNISolone Sodium Succinate 125 MG/2 ML SDV IVPUSH SCH ×2 (02:01→08:00)
[2017-03-05] MEDS: Sodium Chloride 0.9% 1,000 ML IV SCH (06:25)
[2017-03-05] MEDS: Levalbuterol HCl 1.25 MG/3 ML Neb NEB SCH ×4 (07:36→20:02)
[2017-03-05] MEDS: Pantoprazole 40 MG Tab.CR PO SCH (07:51)
[2017-03-05] MEDS: Tamsulosin 0.4 MG Cap.ER PO SCH (08:01)
[2017-03-05] MEDS: Folic Acid 1 MG Tab PO SCH (08:01)
[2017-03-05] MEDS: Enoxaparin 40 MG/0.4 ML Syringe SUBCUT SCH (08:02)
[2017-03-05] MEDS: Metoprolol Tartrate 50 MG Tab PO SCH ×2 (08:02→20:02)
[2017-03-05] MEDS: predniSONE 20 MG Tab PO SCH (08:03)
[2017-03-05] MEDS: Carbidopa/Levodopa 25-100 MG Tab PO SCH ×3 (08:03→20:02)
--- NOTE | 2017-03-05 09:07 | CR ---
Size upper limits of normal. Low lung volumes. Cardiac pacer. No infiltrate within the left lung. St reaky density within the right lung base. Would favor atelectasis. Developing infiltrate difficult t o exclude.
[2017-03-05] MEDS ORDERED: methylPREDNISolone Sodium Succinate 125 MG/2 ML SDV IVPUSH SCH (09:31)
--- NOTE | 2017-03-05 09:36 | PCM.PN ---
- General Info Date of Service: 03/05/17 Functional Status: Reports: tolerating diet - Review of Systems General: Denies: Fever, Chills Pulmonary: Reports: shortness of breath, cough, wheezing Cardiovascular: Reports: Dyspnea on Exertion. Denies: Chest Pain, Palpitations , Orthopnea, PND, Edema Gastrointestinal: Reports: No symptoms Systems Review Comment:: This patient has shown evidence of further improvement over the past 24 hours. Subjectively reports less shortness of breath, saturations have been adequate, heart rate and respiratory rate improved but still remain elevated. - Patient Data Vitals - most recent: Last Vital Signs Temp 97.4 F 03/05/17 08:00 Pulse 117 H 03/05/17 08:02 Resp 32 H 03/05/17 08:00 BP 116/70 03/05/17 08:02 Pulse Ox 94 L 03/05/17 08:00 Weight - most recent: 219 lb 9.286 oz I&O - last 24 hours: Intake & Output 03/04/17 03/05/17 03/05/17 22:59 06:59 14:59 Intake Total 700 2588 Output Total 210 Balance 490 2588 Lab Results last 24 hrs: Laboratory Results - last 24 hr 03/05/17 03/05/17 03/05/17 Range/Units 05:00 05:40 05:40 WBC 4.7 (4.5-11.0) K/uL RBC 3.49 L (4.30-5.90) M/uL Hgb 12.5 (12.0-15.0) g/dL Hct 37.9 L (40.0-54.0) % MCV 109 H (80-98) fL MCH 36 H (27-31) pg MCHC 33 (32-36) % Plt Count 102 L (150-400) K/uL Sodium 139 L (140-148) mmol/L Potassium 4.1 (3.6-5.2) mmol/L Chloride 108 (100-108) mmol/L Carbon Dioxide 21 (21-32) mmol/L Anion Gap 14.1 H (5.0-14.0) mmol/L BUN 22 H (7-18) mg/dL Creatinine 1.1 (0.8-1.3) mg/dL Est Cr Clr Drug Dosing 53.24 mL/min Estimated GFR (MDRD) > 60 (>60) Glucose 140 H (74-106) mg/dL Lactic Acid 2.7 H (0.4-2.0) mmol/L Calcium 7.4 L (8.5-10.1) mg/dL Pedro Results last 24 hrs: Microbiology 03/03/17 16:43 Gram Stain - Final Sputum - Expectorated Respiratory Culture - Preliminary NORMAL RESPIRATORY SRINI 1 DAY Med Orders - Current: Current Medications Acetaminophen (Tylenol) 650 mg PO Q4H PRN PRN Reason: Pain (Mild 1-3)/fever Last Admin: 03/04/17 07:45 Dose: 650 mg Hydrocodone Bitart/Acetaminophen ([place] 325-5 Mg) 1 tab PO Q4H PRN PRN Reason: Pain Benzonatate (Tessalon Perles) 100 mg PO TID PRN PRN Reason: Cough Carbidopa/Levodopa (Sinemet 25-100 Mg) 1 tab PO TID [facility] Last Admin: 03/05/17 08:03 Dose: 1 tab Enoxaparin Sodium (Lovenox) 40 mg SUBCUT DAILY [facility] Last Admin: 03/05/17 08:02 Dose: 40 mg Folic Acid (Folic Acid) 1 mg PO DAILY [facility] Last Admin: 03/05/17 08:01 Dose: 1 mg Guaifenesin/Dextromethorphan (Robitussin Dm) 10 ml PO Q4H PRN PRN Reason: Cough Last Admin: 03/04/17 15:16 Dose: 10 ml Levofloxacin/Dextrose 750 mg/ (Premix) 150 mls @ 100 mls/hr IV Q24H [facility] Last Admin: 03/04/17 15:20 Dose: 100 mls/hr Ceftriaxone Sodium 2 gm/ (Sodium Chloride) 50 mls @ 100 mls/hr IV Q24H [facility] Last Admin: 03/04/17 13:35 Dose: 100 mls/hr Vancomycin HCl 1.5 gm/ Sodium (Chloride) 250 mls @ 150 mls/hr IV Q12H [facility] Last Admin: 03/05/17 08:17 Dose: 150 mls/hr Levalbuterol HCl (Xopenex) 1.25 mg NEB QIDRT [facility] Last Admin: 03/05/17 07:36 Dose: 1.25 mg Levalbuterol HCl (Xopenex) 1.25 mg NEB Q2H PRN PRN Reason: Shortness of Breath Methylprednisolone Sodium Succinate (Solu-Medrol) 40 mg IVPUSH Q8H [facility] Metoprolol Tartrate (Lopressor) 50 mg PO Q12H [facility] Last Admin: 03/05/17 08:02 Dose: 50 mg Mirtazapine (Remeron) 7.5 mg PO BEDTIME [facility] Last Admin: 03/04/17 20:36 Dose: 7.5 mg Ondansetron HCl (Zofran Odt) 4 mg PO Q6H PRN PRN Reason: Nausea able to take PO Ondansetron HCl (Zofran) 4 mg IV Q6H PRN PRN Reason: Nausea/Vomiting Pantoprazole Sodium (Protonix) 40 mg PO ACBREAKFAST [facility] Last Admin: 03/05/17 07:51 Dose: 40 mg Senna/Docusate Sodium (Senna Plus) 2 tab PO BID [facility] Last Admin: 03/05/17 08:03 Dose: 2 tab Sodium Chloride (Saline Flush) 10 ml FLUSH ASDIRECTED PRN PRN Reason: Keep Vein Open Last Admin: 03/03/17 13:08 Dose: 10 ml Tamsulosin HCl (Flomax) 0.4 mg PO DAILY [facility] Last Admin: 03/05/17 08:01 Dose: 0.4 mg Discontinued Medications Albuterol (Proventil Neb Soln) 2.5 mg NEB Q4H PRN PRN Reason: Shortness Of Breath/wheezing Albuterol/Ipratropium (Duoneb 3.0-0.5 Mg/3 Ml) 3 ml NEB QIDRT [facility] Last Admin: 03/04/17 07:12 Dose: 3 ml Digoxin (Lanoxin) 125 mcg IVPUSH ONETIME ONE Stop: 03/04/17 09:01 Last Admin: 03/04/17 09:02 Dose: 125 mcg Hydrocortisone Sodium Succinate (Solu-Cortef) 100 mg IVPUSH ONETIME ONE Stop: 03/03/17 16:01 Last Admin: 03/03/17 15:52 Dose: 100 mg Lactated Ringer's (Ringers, Lactated) 1,000 mls @ 999 mls/hr IV BOLUS ONE Stop: 03/03/17 13:50 Last Admin: 03/03/17 13:08 Dose: 999 mls/hr Ceftriaxone Sodium 2 gm/ (Sodium Chloride) 50 mls @ 100 mls/hr IV ONETIME ONE Stop: 03/03/17 13:21 Last Admin: 03/03/17 13:08 Dose: 100 mls/hr Sodium Chloride (Normal Saline) 1,000 mls @ 125 mls/hr IV ASDIRECTED [facility] Last Admin: 03/05/17 06:25 Dose: 125 mls/hr Sodium Chloride (Normal Saline) 1,000 mls @ 999 mls/hr IV ASDIRECTED [facility] Stop: 03/03/17 16:54 Last Admin: 03/03/17 15:04 Dose: 999 mls/hr Sodium Chloride (Normal Saline) 1,000 mls @ 999 mls/hr IV ASDIRECTED [facility] Stop: 03/03/17 18:31 Last Admin: 03/03/17 18:05 Dose: 999 mls/hr Vancomycin HCl 2 gm/ Sodium (Chloride) 250 mls @ 150 mls/hr IV ONETIME ONE Stop: 03/04/17 10:39 Last Admin: 03/04/17 09:15 Dose: 150 mls/hr Methylprednisolone Sodium Succinate (Solu-Medrol) 125 mg IVPUSH ONETIME ONE Stop: 03/04/17 09:01 Last Admin: 03/04/17 09:12 Dose: 125 mg Methylprednisolone Sodium Succinate (Solu-Medrol) 62.5 mg IVPUSH Q6H [facility] Last Admin: 03/05/17 08:00 Dose: 62.5 mg Metoprolol Tartrate (Lopressor) 25 mg PO ONETIME ONE Stop: 03/03/17 22:12 Last Admin: 03/03/17 22:23 Dose: 25 mg Prednisone (Prednisone) 20 mg PO DAILY [facility] Last Admin: 03/05/17 08:03 Dose: 20 mg - Exam Quality Assessment: supplemental oxygen, DVT prophylaxis General: alert, cooperative Lungs: Clear to auscultation, Normal respiratory effort Cardiovascular: Regular Rhythm, Tachycardia Abdomen: bowel sounds present, soft, no tenderness, no distension Extremities: no edema Skin: warm, dry, intact - Problem List Review Problem List Initiated/Reviewed/Updated: Yes - My Orders Last 24 Hours: My Active Orders 03/05/17 09:31 methylPREDNISolone Sod Succ [Solu-MEDROL] 40 mg IVPUSH Q8H Convert IV to Saline Lock [OM.PC] Routine 03/06/17 05:00 BASIC METABOLIC PANEL,BMP [CHEM] Timed CBC WITH AUTO DIFF [HEME] Timed 03/06/17 05:11 LACTIC ACID [CHEM] AM - Plan Plan:: Assessment and plan - Right lung pneumonia with sepsis and acute hypoxic respiratory failure - evidence for sepsis has been decreasing. Cultures are pending. Tolerating current antibiotics. Respiratory rate and oxygen saturations have improved over the last 24 hours. Gram stain from sputum culture showed gram-positive cocci. Lactic acid level remains mildly elevated. -Add vancomycin -Continue Antibiotic coverage with ceftriaxone and levofloxacin -Lactic acid in the morning -Nebulizers -Supplemental oxygen -Followup cultures -Hold antihypertensive medications Paroxysmal atrial fibrillation - heart rate has improved over the past 24 hours but remains mildly elevated. -Restart beta anibal as blood pressure allows -Digoxin as needed Parkinson's disease - significant limitation of functional status at baseline. He is nearly bedbound other than short walks once or twice a day. -Continue home medications -Start physical therapy as soon as sepsis resolves Normal pressure hydrocephalus - Further complicates his functional status with balance issues. -Physical therapy as able Maintenance issues - - DVT prophylaxis - enoxaparin - GI prophylaxis - PPI - Nutrition - regular diet Disposition - anticipate discharge back to the [facility] after the hospital stay
[2017-03-05] MEDS: cefTRIAXone 2 GM in Sodium Chloride 0.9% 50 ML IV SCH (13:07)
[2017-03-05] MEDS: Levofloxacin/Dextrose 5%-Water 750 MG in Premix Bag 1 BAG IV SCH (16:02)
[2017-03-05] MEDS: methylPREDNISolone Sodium Succinate 40 MG/1 ML SDV IVPUSH SCH ×2 (16:02→23:00)
[2017-03-05] MEDS: Mirtazapine 15 MG Tab PO SCH (20:01)
[2017-03-06] MEDS: Levalbuterol HCl 1.25 MG/3 ML Neb NEB SCH ×4 (07:06→20:32)
[2017-03-06] MEDS: Pantoprazole 40 MG Tab.CR PO SCH (08:20)
[2017-03-06] MEDS: methylPREDNISolone Sodium Succinate 40 MG/1 ML SDV IVPUSH SCH ×3 (08:28→23:21)
[2017-03-06] MEDS: Carbidopa/Levodopa 25-100 MG Tab PO SCH ×3 (08:34→20:32)
[2017-03-06] MEDS: Folic Acid 1 MG Tab PO SCH (08:35)
[2017-03-06] MEDS: Tamsulosin 0.4 MG Cap.ER PO SCH (08:35)
[2017-03-06] MEDS: Metoprolol Tartrate 50 MG Tab PO SCH ×2 (08:36→20:32)
[2017-03-06] MEDS: Enoxaparin 40 MG/0.4 ML Syringe SUBCUT SCH (08:36)
--- NOTE | 2017-03-06 12:00 | PCM.PN ---
- General Info Date of Service: 03/06/17 Functional Status: Reports: pain controlled, tolerating diet, urinating - Review of Systems General: Reports: Weakness. Denies: Fever, Chills Pulmonary: Reports: shortness of breath, cough, wheezing. Denies: pleuritic chest pain, sputum, hemoptysis Cardiovascular: Reports: Dyspnea on Exertion. Denies: Chest Pain, Palpitations , Orthopnea, PND, Edema, Lightheadedness Gastrointestinal: Reports: No symptoms Systems Review Comment:: Mr. Reddy is done well over the past 24 hours and reports further improvement in his shortness of breath. He did experience a transient increase in heart rate but it is now back to baseline which is just mildly elevated or in the upper range of normal. He denies any chest pain or pressure, cough has improved. - Patient Data Vitals - most recent: Last Vital Signs Temp 97.9 F 03/06/17 08:00 Pulse 96 03/06/17 10:57 Resp 24 H 03/06/17 08:00 BP 110/53 L 03/06/17 08:36 Pulse Ox 97 03/06/17 08:00 Weight - most recent: 219 lb I&O - last 24 hours: Intake & Output 03/05/17 03/06/17 03/06/17 22:59 06:59 14:59 Intake Total 1485 250 Balance 1485 250 Lab Results last 24 hrs: Laboratory Results - last 24 hr 03/06/17 03/06/17 03/06/17 Range/Units 05:00 05:00 05:00 WBC 9.4 (4.5-11.0) K/uL RBC 3.41 L (4.30-5.90) M/uL Hgb 12.2 (12.0-15.0) g/dL Hct 37.1 L (40.0-54.0) % MCV 109 H (80-98) fL MCH 36 H (27-31) pg MCHC 33 (32-36) % Plt Count 101 L (150-400) K/uL Add Manual Diff Yes Neutrophils % (Manual) 85 H (36-66) % Band Neutrophils % 6 (5-11) % Lymphocytes % (Manual) 4 L (24-44) % Monocytes % (Manual) 3 (2-6) % Anisocytosis Moderate H Sodium 142 (140-148) mmol/L Potassium 4.3 (3.6-5.2) mmol/L Chloride 110 H (100-108) mmol/L Carbon Dioxide 22 (21-32) mmol/L Anion Gap 14.3 H (5.0-14.0) mmol/L BUN 29 H (7-18) mg/dL Creatinine 1.1 (0.8-1.3) mg/dL Est Cr Clr Drug Dosing 53.24 mL/min Estimated GFR (MDRD) > 60 (>60) Glucose 149 H (74-106) mg/dL Lactic Acid 3.0 H (0.4-2.0) mmol/L Calcium 7.8 L (8.5-10.1) mg/dL Vancomycin Trough (10.0-20.0) ug/mL 03/06/17 Range/Units 08:30 WBC (4.5-11.0) K/uL RBC (4.30-5.90) M/uL Hgb (12.0-15.0) g/dL Hct (40.0-54.0) % MCV (80-98) fL MCH (27-31) pg MCHC (32-36) % Plt Count (150-400) K/uL Add Manual Diff Neutrophils % (Manual) (36-66) % Band Neutrophils % (5-11) % Lymphocytes % (Manual) (24-44) % Monocytes % (Manual) (2-6) % Anisocytosis Sodium (140-148) mmol/L Potassium (3.6-5.2) mmol/L Chloride (100-108) mmol/L Carbon Dioxide (21-32) mmol/L Anion Gap (5.0-14.0) mmol/L BUN (7-18) mg/dL Creatinine (0.8-1.3) mg/dL Est Cr Clr Drug Dosing mL/min Estimated GFR (MDRD) (>60) Glucose (74-106) mg/dL Lactic Acid (0.4-2.0) mmol/L Calcium (8.5-10.1) mg/dL Vancomycin Trough 18.0 (10.0-20.0) ug/mL Pedro Results last 24 hrs: Microbiology 03/03/17 16:43 Gram Stain - Final Sputum - Expectorated Respiratory Culture - Final NORMAL RESPIRATORY SRINI 2 DAYS Med Orders - Current: Current Medications Acetaminophen (Tylenol) 650 mg PO Q4H PRN PRN Reason: Pain (Mild 1-3)/fever Last Admin: 03/04/17 07:45 Dose: 650 mg Hydrocodone Bitart/Acetaminophen ([place] 325-5 Mg) 1 tab PO Q4H PRN PRN Reason: Pain Benzonatate (Tessalon Perles) 100 mg PO TID PRN PRN Reason: Cough Carbidopa/Levodopa (Sinemet 25-100 Mg) 1 tab PO TID [facility] Last Admin: 03/06/17 08:34 Dose: 1 tab Enoxaparin Sodium (Lovenox) 40 mg SUBCUT DAILY [facility] Last Admin: 03/06/17 08:36 Dose: 40 mg Folic Acid (Folic Acid) 1 mg PO DAILY [facility] Last Admin: 03/06/17 08:35 Dose: 1 mg Guaifenesin/Dextromethorphan (Robitussin Dm) 10 ml PO Q4H PRN PRN Reason: Cough Last Admin: 03/04/17 15:16 Dose: 10 ml Levofloxacin/Dextrose 750 mg/ (Premix) 150 mls @ 100 mls/hr IV Q24H [facility] Last Admin: 03/05/17 16:02 Dose: 100 mls/hr Ceftriaxone Sodium 2 gm/ (Sodium Chloride) 50 mls @ 100 mls/hr IV Q24H [facility] Last Admin: 03/05/17 13:07 Dose: 100 mls/hr Vancomycin HCl 1.5 gm/ Sodium (Chloride) 250 mls @ 150 mls/hr IV Q12H [facility] Last Admin: 03/06/17 09:45 Dose: 150 mls/hr Levalbuterol HCl (Xopenex) 1.25 mg NEB QIDRT [facility] Last Admin: 03/06/17 10:57 Dose: 1.25 mg Levalbuterol HCl (Xopenex) 1.25 mg NEB Q2H PRN PRN Reason: Shortness of Breath Methylprednisolone Sodium Succinate (Solu-Medrol) 40 mg IVPUSH Q8H [facility] Last Admin: 03/06/17 08:28 Dose: 40 mg Metoprolol Tartrate (Lopressor) 50 mg PO Q12H [facility] Last Admin: 03/06/17 08:36 Dose: 50 mg Mirtazapine (Remeron) 7.5 mg PO BEDTIME [facility] Last Admin: 03/05/17 20:01 Dose: 7.5 mg Ondansetron HCl (Zofran Odt) 4 mg PO Q6H PRN PRN Reason: Nausea able to take PO Ondansetron HCl (Zofran) 4 mg IV Q6H PRN PRN Reason: Nausea/Vomiting Pantoprazole Sodium (Protonix) 40 mg PO ACBREAKFAST [facility] Last Admin: 03/06/17 08:20 Dose: 40 mg Senna/Docusate Sodium (Senna Plus) 2 tab PO BID [facility] Last Admin: 03/06/17 08:35 Dose: 2 tab Sodium Chloride (Saline Flush) 10 ml FLUSH ASDIRECTED PRN PRN Reason: Keep Vein Open Last Admin: 03/03/17 13:08 Dose: 10 ml Tamsulosin HCl (Flomax) 0.4 mg PO DAILY [facility] Last Admin: 03/06/17 08:35 Dose: 0.4 mg Discontinued Medications Albuterol (Proventil Neb Soln) 2.5 mg NEB Q4H PRN PRN Reason: Shortness Of Breath/wheezing Albuterol/Ipratropium (Duoneb 3.0-0.5 Mg/3 Ml) 3 ml NEB QIDRT [facility] Last Admin: 03/04/17 07:12 Dose: 3 ml Digoxin (Lanoxin) 125 mcg IVPUSH ONETIME ONE Stop: 03/04/17 09:01 Last Admin: 03/04/17 09:02 Dose: 125 mcg Hydrocortisone Sodium Succinate (Solu-Cortef) 100 mg IVPUSH ONETIME ONE Stop: 03/03/17 16:01 Last Admin: 03/03/17 15:52 Dose: 100 mg Lactated Ringer's (Ringers, Lactated) 1,000 mls @ 999 mls/hr IV BOLUS ONE Stop: 03/03/17 13:50 Last Admin: 03/03/17 13:08 Dose: 999 mls/hr Ceftriaxone Sodium 2 gm/ (Sodium Chloride) 50 mls @ 100 mls/hr IV ONETIME ONE Stop: 03/03/17 13:21 Last Admin: 03/03/17 13:08 Dose: 100 mls/hr Sodium Chloride (Normal Saline) 1,000 mls @ 125 mls/hr IV ASDIRECTED [facility] Last Admin: 03/05/17 06:25 Dose: 125 mls/hr Sodium Chloride (Normal Saline) 1,000 mls @ 999 mls/hr IV ASDIRECTED [facility] Stop: 03/03/17 16:54 Last Admin: 03/03/17 15:04 Dose: 999 mls/hr Sodium Chloride (Normal Saline) 1,000 mls @ 999 mls/hr IV ASDIRECTED [facility] Stop: 03/03/17 18:31 Last Admin: 03/03/17 18:05 Dose: 999 mls/hr Vancomycin HCl 2 gm/ Sodium (Chloride) 250 mls @ 150 mls/hr IV ONETIME ONE Stop: 03/04/17 10:39 Last Admin: 03/04/17 09:15 Dose: 150 mls/hr Methylprednisolone Sodium Succinate (Solu-Medrol) 125 mg IVPUSH ONETIME ONE Stop: 03/04/17 09:01 Last Admin: 03/04/17 09:12 Dose: 125 mg Methylprednisolone Sodium Succinate (Solu-Medrol) 62.5 mg IVPUSH Q6H [facility] Last Admin: 03/05/17 08:00 Dose: 62.5 mg Metoprolol Tartrate (Lopressor) 25 mg PO ONETIME ONE Stop: 03/03/17 22:12 Last Admin: 03/03/17 22:23 Dose: 25 mg Prednisone (Prednisone) 20 mg PO DAILY [facility] Last Admin: 03/05/17 08:03 Dose: 20 mg - Exam Quality Assessment: supplemental oxygen, DVT prophylaxis General: alert, oriented, cooperative, mild distress Lungs: Decreased breath sounds, Wheezing. No: Crackles, Rales, Rhonchi, Rub, Stridor Cardiovascular: Regular Rate, No Murmurs, Irregular Rhythm Abdomen: bowel sounds present, soft, no tenderness, no distension Extremities: no edema Skin: warm, dry, intact - Problem List Review Problem List Initiated/Reviewed/Updated: Yes - My Orders Last 24 Hours: My Active Orders 03/05/17 16:00 methylPREDNISolone Sod Succ [Solu-MEDROL] 40 mg IVPUSH Q8H 03/07/17 05:00 BASIC METABOLIC PANEL,BMP [CHEM] Timed LACTIC ACID [CHEM] Timed 03/07/17 05:11 FOLIC ACID [CHEM] AM VITAMIN B12 [CHEM] AM - Plan Plan:: Assessment and plan - Right lung pneumonia with sepsis and acute hypoxic respiratory failure - stable except for transient elevation in heart rate during the night. Oxygenation has improved and vitals have otherwise been stable. Cultures are showing no growth at this time. Lactic acid level remains mildly elevated despite stabilization of vital signs. No other specific etiology for the elevated lactic acid has been identified. -Discontinue vancomycin -Continue Antibiotic coverage with ceftriaxone and levofloxacin -Lactic acid in the morning -Nebulizers -Supplemental oxygen -Followup cultures -Hold antihypertensive medications Paroxysmal atrial fibrillation - heart rate has improved over the past 24 hours but remains mildly elevated. Transient episode of elevation during the past 24 hours -Restart beta anibal as blood pressure allows -Digoxin as needed Parkinson's disease - significant limitation of functional status at baseline. He is nearly bedbound other than short walks once or twice a day. -Continue home medications -Start physical therapy as soon as sepsis resolves Normal pressure hydrocephalus - Further complicates his functional status with balance issues. -Physical therapy as able Maintenance issues - - DVT prophylaxis - enoxaparin - GI prophylaxis - PPI - Nutrition - regular diet Disposition - anticipate [facility] back to the [facility] after the hospital stay
[2017-03-06] MEDS: cefTRIAXone 2 GM in Sodium Chloride 0.9% 50 ML IV SCH (14:34)
[2017-03-06] MEDS: Levofloxacin/Dextrose 5%-Water 750 MG in Premix Bag 1 BAG IV SCH (16:59)
[2017-03-06] MEDS: Mirtazapine 15 MG Tab PO SCH (20:32)
[2017-03-07] MEDS: Levalbuterol HCl 1.25 MG/3 ML Neb NEB SCH ×4 (07:06→20:28)
[2017-03-07] MEDS: Pantoprazole 40 MG Tab.CR PO SCH (08:10)
[2017-03-07] MEDS: methylPREDNISolone Sodium Succinate 40 MG/1 ML SDV IVPUSH SCH (08:48)
[2017-03-07] MEDS: Potassium Chloride 20 MEQ Tab.ER PO SCH (09:05)
[2017-03-07] MEDS: Tamsulosin 0.4 MG Cap.ER PO SCH (09:06)
[2017-03-07] MEDS: Carbidopa/Levodopa 25-100 MG Tab PO SCH ×3 (09:06→20:26)
[2017-03-07] MEDS: Metoprolol Tartrate 50 MG Tab PO SCH ×2 (09:07→20:24)
[2017-03-07] MEDS: Enoxaparin 40 MG/0.4 ML Syringe SUBCUT SCH (09:08)
[2017-03-07] MEDS: Folic Acid 1 MG Tab PO SCH (09:08)
--- NOTE | 2017-03-07 09:12 | PCM.PN ---
- General Info Date of Service: 03/07/17 Functional Status: Reports: pain controlled, tolerating diet, urinating - Review of Systems General: Reports: Weakness. Denies: Fever, Chills Pulmonary: Reports: shortness of breath, cough, sputum, wheezing. Denies: pleuritic chest pain, hemoptysis Cardiovascular: Reports: Dyspnea on Exertion. Denies: Chest Pain, Palpitations , Orthopnea, PND, Edema, Lightheadedness Gastrointestinal: Reports: No symptoms Systems Review Comment:: This patient has continued to do well, less shortness of breath. Mild persistent cough productive of sputum. Cultures are negative showing no active growth from blood or sputum. Lactic acid level is remain elevated with no obvious cause. Energy level seems to be improving and his appetite has been good. Heart rate intermittently elevated especially with activity. - Patient Data Vitals - most recent: Last Vital Signs Temp 97.5 F 03/07/17 06:00 Pulse 107 H 03/07/17 07:06 Resp 29 H 03/07/17 06:00 BP 127/74 03/07/17 06:00 Pulse Ox 94 L 03/07/17 06:00 Weight - most recent: 219 lb I&O - last 24 hours: Intake & Output 03/06/17 03/07/17 03/07/17 22:59 06:59 14:59 Intake Total 480 Balance 480 Lab Results last 24 hrs: Laboratory Results - last 24 hr 03/07/17 03/07/17 03/07/17 Range/Units 04:30 04:30 04:30 Sodium 143 (140-148) mmol/L Potassium 4.1 (3.6-5.2) mmol/L Chloride 111 H (100-108) mmol/L Carbon Dioxide 22 (21-32) mmol/L Anion Gap 14.1 H (5.0-14.0) mmol/L BUN 30 H (7-18) mg/dL Creatinine 1.1 (0.8-1.3) mg/dL Est Cr Clr Drug Dosing 53.24 mL/min Estimated GFR (MDRD) > 60 (>60) Glucose 136 H (74-106) mg/dL Lactic Acid 3.6 H (0.4-2.0) mmol/L Calcium 7.9 L (8.5-10.1) mg/dL Vitamin B12 599 (193-986) pg/ml Folate 16.5 (8.6-58.9) ng/ml Pedro Results last 24 hrs: Microbiology 03/03/17 16:43 Gram Stain - Final Sputum - Expectorated Respiratory Culture - Final NORMAL RESPIRATORY SRINI 2 DAYS Med Orders - Current: Current Medications Acetaminophen (Tylenol) 650 mg PO Q4H PRN PRN Reason: Pain (Mild 1-3)/fever Last Admin: 03/04/17 07:45 Dose: 650 mg Hydrocodone Bitart/Acetaminophen ([place] 325-5 Mg) 1 tab PO Q4H PRN PRN Reason: Pain Benzonatate (Tessalon Perles) 100 mg PO TID PRN PRN Reason: Cough Captopril (Capoten) 6.25 mg PO BID [facility] Carbidopa/Levodopa (Sinemet 25-100 Mg) 1 tab PO TID [facility] Last Admin: 03/06/17 20:32 Dose: 1 tab Enoxaparin Sodium (Lovenox) 40 mg SUBCUT DAILY [facility] Last Admin: 03/06/17 08:36 Dose: 40 mg Folic Acid (Folic Acid) 1 mg PO DAILY [facility] Last Admin: 03/06/17 08:35 Dose: 1 mg Furosemide (Lasix) 40 mg PO DAILY [facility] Guaifenesin/Dextromethorphan (Robitussin Dm) 10 ml PO Q4H PRN PRN Reason: Cough Last Admin: 03/04/17 15:16 Dose: 10 ml Levofloxacin/Dextrose 750 mg/ (Premix) 150 mls @ 100 mls/hr IV Q24H [facility] Last Admin: 03/06/17 16:59 Dose: 100 mls/hr Levalbuterol HCl (Xopenex) 1.25 mg NEB QIDRT [facility] Last Admin: 03/07/17 07:06 Dose: 1.25 mg Levalbuterol HCl (Xopenex) 1.25 mg NEB Q2H PRN PRN Reason: Shortness of Breath Metoprolol Tartrate (Lopressor) 50 mg PO Q12H [facility] Last Admin: 03/06/17 20:32 Dose: 50 mg Metoprolol Tartrate (Lopressor) 25 mg PO BID [facility] Mirtazapine (Remeron) 7.5 mg PO BEDTIME [facility] Last Admin: 03/06/17 20:32 Dose: 7.5 mg Non-Formulary Medication (Potassium Chloride [Potassium Chloride]) 20 meq PO DAILY [facility] Ondansetron HCl (Zofran Odt) 4 mg PO Q6H PRN PRN Reason: Nausea able to take PO Ondansetron HCl (Zofran) 4 mg IV Q6H PRN PRN Reason: Nausea/Vomiting Pantoprazole Sodium (Protonix) 40 mg PO ACBREAKFAST [facility] Last Admin: 03/07/17 08:10 Dose: 40 mg Prednisone (Prednisone) 40 mg PO WITHBREAKFAST [facility] Senna/Docusate Sodium (Senna Plus) 2 tab PO BID [facility] Last Admin: 03/06/17 20:32 Dose: 2 tab Sodium Chloride (Saline Flush) 10 ml FLUSH ASDIRECTED PRN PRN Reason: Keep Vein Open Last Admin: 03/03/17 13:08 Dose: 10 ml Spironolactone (Aldactone) mg PO DAILY [facility] Tamsulosin HCl (Flomax) 0.4 mg PO DAILY [facility] Last Admin: 03/06/17 08:35 Dose: 0.4 mg Discontinued Medications Albuterol (Proventil Neb Soln) 2.5 mg NEB Q4H PRN PRN Reason: Shortness Of Breath/wheezing Albuterol/Ipratropium (Duoneb 3.0-0.5 Mg/3 Ml) 3 ml NEB QIDRT [facility] Last Admin: 03/04/17 07:12 Dose: 3 ml Digoxin (Lanoxin) 125 mcg IVPUSH ONETIME ONE Stop: 03/04/17 09:01 Last Admin: 03/04/17 09:02 Dose: 125 mcg Hydrocortisone Sodium Succinate (Solu-Cortef) 100 mg IVPUSH ONETIME ONE Stop: 03/03/17 16:01 Last Admin: 03/03/17 15:52 Dose: 100 mg Lactated Ringer's (Ringers, Lactated) 1,000 mls @ 999 mls/hr IV BOLUS ONE Stop: 03/03/17 13:50 Last Admin: 03/03/17 13:08 Dose: 999 mls/hr Ceftriaxone Sodium 2 gm/ (Sodium Chloride) 50 mls @ 100 mls/hr IV ONETIME ONE Stop: 03/03/17 13:21 Last Admin: 03/03/17 13:08 Dose: 100 mls/hr Sodium Chloride (Normal Saline) 1,000 mls @ 125 mls/hr IV ASDIRECTED [facility] Last Admin: 03/05/17 06:25 Dose: 125 mls/hr Sodium Chloride (Normal Saline) 1,000 mls @ 999 mls/hr IV ASDIRECTED [facility] Stop: 03/03/17 16:54 Last Admin: 03/03/17 15:04 Dose: 999 mls/hr Ceftriaxone Sodium 2 gm/ (Sodium Chloride) 50 mls @ 100 mls/hr IV Q24H [facility] Last Admin: 03/06/17 14:34 Dose: 100 mls/hr Sodium Chloride (Normal Saline) 1,000 mls @ 999 mls/hr IV ASDIRECTED [facility] Stop: 03/03/17 18:31 Last Admin: 03/03/17 18:05 Dose: 999 mls/hr Vancomycin HCl 1.5 gm/ Sodium (Chloride) 250 mls @ 150 mls/hr IV Q12H [facility] Last Admin: 03/06/17 09:45 Dose: 150 mls/hr Vancomycin HCl 2 gm/ Sodium (Chloride) 250 mls @ 150 mls/hr IV ONETIME ONE Stop: 03/04/17 10:39 Last Admin: 03/04/17 09:15 Dose: 150 mls/hr Methylprednisolone Sodium Succinate (Solu-Medrol) 125 mg IVPUSH ONETIME ONE Stop: 03/04/17 09:01 Last Admin: 03/04/17 09:12 Dose: 125 mg Methylprednisolone Sodium Succinate (Solu-Medrol) 62.5 mg IVPUSH Q6H [facility] Last Admin: 03/05/17 08:00 Dose: 62.5 mg Methylprednisolone Sodium Succinate (Solu-Medrol) 40 mg IVPUSH Q8H [facility] Last Admin: 03/07/17 08:48 Dose: 40 mg Metoprolol Tartrate (Lopressor) 25 mg PO ONETIME ONE Stop: 03/03/17 22:12 Last Admin: 03/03/17 22:23 Dose: 25 mg Prednisone (Prednisone) 20 mg PO DAILY [facility] Last Admin: 03/05/17 08:03 Dose: 20 mg - Exam Quality Assessment: supplemental oxygen, DVT prophylaxis General: alert, oriented, cooperative, mild distress Lungs: Normal respiratory effort, Decreased breath sounds, Rhonchi, Wheezing. No: Crackles, Rales, Rub, Stridor Cardiovascular: No Murmurs, Irregular Rhythm, Tachycardia. No: Bradycardia, Gallops Abdomen: bowel sounds present, soft, no tenderness, no distension Extremities: no edema Skin: warm, dry, intact - Problem List Review Problem List Initiated/Reviewed/Updated: Yes - My Orders Last 24 Hours: My Active Orders 03/07/17 09:15 Captopril [Capoten] 6.25 mg PO BID Furosemide [Lasix] 40 mg PO DAILY Metoprolol Tartrate [Lopressor] 25 mg PO BID Potassium Chloride [Potassium Chloride] 20 meq PO DAILY 03/08/17 05:00 BASIC METABOLIC PANEL,BMP [CHEM] Timed 03/08/17 08:00 predniSONE 40 mg PO WITHBREAKFAST 03/08/17 09:00 Spironolactone [Aldactone] 12.5 tab PO DAILY - Plan Plan:: Assessment and plan - Right lung pneumonia with sepsis and acute hypoxic respiratory failure - respiratory status has been stable, cultures remained negative. -Discontinue ceftriaxone -Continue Antibiotic coverage with levofloxacin -Discontinue IV Solu-Medrol -Prednisone 40 mg by mouth daily -Nebulizers -Supplemental oxygen Paroxysmal atrial fibrillation - heart rate elevated with activity -Restart beta anibal -Digoxin as needed Parkinson's disease - significant limitation of functional status at baseline. He is nearly bedbound other than short walks once or twice a day. -Continue home medications -Start physical therapy as soon as sepsis resolves Normal pressure hydrocephalus - Further complicates his functional status with balance issues. -Physical therapy as able Maintenance issues - - DVT prophylaxis - enoxaparin - GI prophylaxis - PPI - Nutrition - regular diet Disposition - anticipate discharge back to [facility] after the hospital stay
[2017-03-07] MEDS: predniSONE 20 MG Tab PO SCH (09:22)
[2017-03-07] MEDS: Furosemide 40 MG Tab PO SCH (09:25)
[2017-03-07] MEDS ORDERED: Metoprolol Tartrate 25 MG Tab PO SCH (09:30)
[2017-03-07] MEDS: Spironolactone 25 MG Tab PO SCH (11:00)
[2017-03-07] MEDS: Diltiazem IR 30 MG Tab PO SCH ×3 (11:00→21:23)
[2017-03-07] MEDS: Levofloxacin/Dextrose 5%-Water 750 MG in Premix Bag 1 BAG IV SCH (16:36)
[2017-03-07] MEDS: Mirtazapine 15 MG Tab PO SCH (20:25)
[2017-03-08] MEDS: Diltiazem IR 30 MG Tab PO SCH ×2 (03:12→09:03)
[2017-03-08] MEDS: Levalbuterol HCl 1.25 MG/3 ML Neb NEB SCH ×4 (07:12→20:30)
[2017-03-08] MEDS: Pantoprazole 40 MG Tab.CR PO SCH (07:37)
[2017-03-08] MEDS: Carbidopa/Levodopa 25-100 MG Tab PO SCH ×3 (08:59→20:31)
[2017-03-08] MEDS: Spironolactone 25 MG Tab PO SCH (08:59)
[2017-03-08] MEDS: Folic Acid 1 MG Tab PO SCH (08:59)
[2017-03-08] MEDS: Potassium Chloride 20 MEQ Tab.ER PO SCH (08:59)
[2017-03-08] MEDS: Furosemide 40 MG Tab PO SCH (08:59)
[2017-03-08] MEDS: predniSONE 20 MG Tab PO SCH (09:00)
[2017-03-08] MEDS: Enoxaparin 40 MG/0.4 ML Syringe SUBCUT SCH (09:01)
[2017-03-08] MEDS: Tamsulosin 0.4 MG Cap.ER PO SCH (09:02)
[2017-03-08] MEDS: Metoprolol Tartrate 50 MG Tab PO SCH ×2 (09:02→20:31)
[2017-03-08] MEDS ORDERED: Levofloxacin 250 MG Tab PO SCH (10:00)
--- NOTE | 2017-03-08 10:20 | PCM.PN ---
- General Info Date of Service: 03/08/17 Functional Status: Reports: pain controlled, tolerating diet - Review of Systems General: Reports: Weakness. Denies: Fever, Chills Pulmonary: Reports: shortness of breath, cough, wheezing. Denies: pleuritic chest pain, sputum, hemoptysis Cardiovascular: Reports: Dyspnea on Exertion. Denies: Chest Pain, Palpitations , Orthopnea, PND, Edema Gastrointestinal: Reports: No symptoms Systems Review Comment:: This patient has been stable over the past 24 hours, heart rate control is improved with addition of beta anibal and calcium channel blockers to current regimen. Vital signs have been stable and he has remained afebrile. - Patient Data Vitals - most recent: Last Vital Signs Temp 96 F 03/08/17 07:40 Pulse 87 03/08/17 09:02 Resp 23 H 03/08/17 07:40 BP 132/81 03/08/17 09:03 Pulse Ox 97 03/08/17 07:40 Weight - most recent: 219 lb I&O - last 24 hours: Intake & Output 03/07/17 03/08/17 03/08/17 22:59 06:59 14:59 Intake Total 990 Balance 990 Lab Results last 24 hrs: Laboratory Results - last 24 hr 03/08/17 Range/Units 05:00 Sodium 145 (140-148) mmol/L Potassium 3.9 (3.6-5.2) mmol/L Chloride 109 H (100-108) mmol/L Carbon Dioxide 24 (21-32) mmol/L Anion Gap 15.9 H (5.0-14.0) mmol/L BUN 30 H (7-18) mg/dL Creatinine 1.1 (0.8-1.3) mg/dL Est Cr Clr Drug Dosing 53.24 mL/min Estimated GFR (MDRD) > 60 (>60) Glucose 131 H (74-106) mg/dL Calcium 7.9 L (8.5-10.1) mg/dL Med Orders - Current: Current Medications Acetaminophen (Tylenol) 650 mg PO Q4H PRN PRN Reason: Pain (Mild 1-3)/fever Last Admin: 03/04/17 07:45 Dose: 650 mg Hydrocodone Bitart/Acetaminophen ([place] 325-5 Mg) 1 tab PO Q4H PRN PRN Reason: Pain Captopril (Capoten) 6.25 mg PO BID [facility] Last Admin: 03/08/17 09:03 Dose: 6.25 mg Carbidopa/Levodopa (Sinemet 25-100 Mg) 1 tab PO TID [facility] Last Admin: 03/08/17 08:59 Dose: 1 tab Diltiazem HCl (Cardizem Cd) 120 mg PO DAILY [facility] Enoxaparin Sodium (Lovenox) 40 mg SUBCUT DAILY [facility] Last Admin: 03/08/17 09:01 Dose: 40 mg Folic Acid (Folic Acid) 1 mg PO DAILY [facility] Last Admin: 03/08/17 08:59 Dose: 1 mg Furosemide (Lasix) 40 mg PO DAILY [facility] Last Admin: 03/08/17 08:59 Dose: 40 mg Levalbuterol HCl (Xopenex) 1.25 mg NEB QIDRT [facility] Last Admin: 03/08/17 07:12 Dose: 1.25 mg Levalbuterol HCl (Xopenex) 1.25 mg NEB Q2H PRN PRN Reason: Shortness of Breath Levofloxacin 500 mg/ (Levofloxacin 250 mg) 750 mg PO Q24H [facility] Metoprolol Tartrate (Lopressor) 50 mg PO Q12H [facility] Last Admin: 03/08/17 09:02 Dose: 50 mg Mirtazapine (Remeron) 7.5 mg PO BEDTIME [facility] Last Admin: 03/07/17 20:25 Dose: 15 mg Ondansetron HCl (Zofran Odt) 4 mg PO Q6H PRN PRN Reason: Nausea able to take PO Ondansetron HCl (Zofran) 4 mg IV Q6H PRN PRN Reason: Nausea/Vomiting Pantoprazole Sodium (Protonix) 40 mg PO ACBREAKFAST [facility] Last Admin: 03/08/17 07:37 Dose: 40 mg Potassium Chloride (Klor-Con M20) 20 meq PO DAILY [facility] Last Admin: 03/08/17 08:59 Dose: 20 meq Prednisone (Prednisone) 40 mg PO WITHBREAKFAST [facility] Last Admin: 03/08/17 09:00 Dose: 40 mg Senna/Docusate Sodium (Senna Plus) 2 tab PO BID [facility] Last Admin: 03/08/17 09:01 Dose: 2 tab Sodium Chloride (Saline Flush) 10 ml FLUSH ASDIRECTED PRN PRN Reason: Keep Vein Open Last Admin: 03/03/17 13:08 Dose: 10 ml Spironolactone (Aldactone) 25 mg PO DAILY [facility] Last Admin: 03/08/17 08:59 Dose: 25 mg Tamsulosin HCl (Flomax) 0.4 mg PO DAILY [facility] Last Admin: 03/08/17 09:02 Dose: 0.4 mg Warfarin Sodium (Coumadin) 5 mg PO ONETIME ONE Stop: 03/08/17 13:01 Discontinued Medications Albuterol (Proventil Neb Soln) 2.5 mg NEB Q4H PRN PRN Reason: Shortness Of Breath/wheezing Albuterol/Ipratropium (Duoneb 3.0-0.5 Mg/3 Ml) 3 ml NEB QIDRT [facility] Last Admin: 03/04/17 07:12 Dose: 3 ml Benzonatate (Tessalon Perles) 100 mg PO TID PRN PRN Reason: Cough Digoxin (Lanoxin) 125 mcg IVPUSH ONETIME ONE Stop: 03/04/17 09:01 Last Admin: 03/04/17 09:02 Dose: 125 mcg Diltiazem HCl (Cardizem) 30 mg PO Q6H [facility] Last Admin: 03/08/17 09:03 Dose: 30 mg Guaifenesin/Dextromethorphan (Robitussin Dm) 10 ml PO Q4H PRN PRN Reason: Cough Last Admin: 03/04/17 15:16 Dose: 10 ml Hydrocortisone Sodium Succinate (Solu-Cortef) 100 mg IVPUSH ONETIME ONE Stop: 03/03/17 16:01 Last Admin: 03/03/17 15:52 Dose: 100 mg Lactated Ringer's (Ringers, Lactated) 1,000 mls @ 999 mls/hr IV BOLUS ONE Stop: 03/03/17 13:50 Last Admin: 03/03/17 13:08 Dose: 999 mls/hr Ceftriaxone Sodium 2 gm/ (Sodium Chloride) 50 mls @ 100 mls/hr IV ONETIME ONE Stop: 03/03/17 13:21 Last Admin: 03/03/17 13:08 Dose: 100 mls/hr Levofloxacin/Dextrose 750 mg/ (Premix) 150 mls @ 100 mls/hr IV Q24H [facility] Last Admin: 03/07/17 16:36 Dose: 100 mls/hr Sodium Chloride (Normal Saline) 1,000 mls @ 125 mls/hr IV ASDIRECTED [facility] Last Admin: 03/05/17 06:25 Dose: 125 mls/hr Sodium Chloride (Normal Saline) 1,000 mls @ 999 mls/hr IV ASDIRECTED [facility] Stop: 03/03/17 16:54 Last Admin: 03/03/17 15:04 Dose: 999 mls/hr Ceftriaxone Sodium 2 gm/ (Sodium Chloride) 50 mls @ 100 mls/hr IV Q24H [facility] Last Admin: 03/06/17 14:34 Dose: 100 mls/hr Sodium Chloride (Normal Saline) 1,000 mls @ 999 mls/hr IV ASDIRECTED [facility] Stop: 03/03/17 18:31 Last Admin: 03/03/17 18:05 Dose: 999 mls/hr Vancomycin HCl 1.5 gm/ Sodium (Chloride) 250 mls @ 150 mls/hr IV Q12H [facility] Last Admin: 03/06/17 09:45 Dose: 150 mls/hr Vancomycin HCl 2 gm/ Sodium (Chloride) 250 mls @ 150 mls/hr IV ONETIME ONE Stop: 03/04/17 10:39 Last Admin: 03/04/17 09:15 Dose: 150 mls/hr Methylprednisolone Sodium Succinate (Solu-Medrol) 125 mg IVPUSH ONETIME ONE Stop: 03/04/17 09:01 Last Admin: 03/04/17 09:12 Dose: 125 mg Methylprednisolone Sodium Succinate (Solu-Medrol) 62.5 mg IVPUSH Q6H [facility] Last Admin: 03/05/17 08:00 Dose: 62.5 mg Methylprednisolone Sodium Succinate (Solu-Medrol) 40 mg IVPUSH Q8H [facility] Last Admin: 03/07/17 08:48 Dose: 40 mg Metoprolol Tartrate (Lopressor) 25 mg PO ONETIME ONE Stop: 03/03/17 22:12 Last Admin: 03/03/17 22:23 Dose: 25 mg Metoprolol Tartrate (Lopressor) 25 mg PO BID [facility] Prednisone (Prednisone) 20 mg PO DAILY [facility] Last Admin: 03/05/17 08:03 Dose: 20 mg - Exam Quality Assessment: supplemental oxygen, DVT prophylaxis General: alert, oriented, cooperative Lungs: Decreased breath sounds, Wheezing. No: Crackles, Rales, Rhonchi, Rub Cardiovascular: Regular Rate, No Murmurs, Irregular Rhythm Abdomen: bowel sounds present, soft, no tenderness, no distension Extremities: no edema Skin: warm, dry, intact - Problem List Review Problem List Initiated/Reviewed/Updated: Yes - My Orders Last 24 Hours: My Active Orders 03/07/17 09:30 Captopril [Capoten] 6.25 mg PO BID Furosemide [Lasix] 40 mg PO DAILY Potassium Chloride [Klor-Con M20] 20 meq PO DAILY Spironolactone [Aldactone] 25 mg PO DAILY predniSONE 40 mg PO WITHBREAKFAST 03/08/17 10:02 Warfarin [Coumadin] 5 mg PO ONETIME ONE 03/08/17 10:03 INR,PT,PROTHROMBIN TIME [[facility]] Routine 03/08/17 10:06 Vital Signs [RC] Q4H 03/08/17 10:15 Diltiazem [Cardizem CD] 120 mg PO DAILY 03/08/17 11:00 Levofloxacin [Levaquin] 750 mg PO Q24H 03/09/17 05:11 INR,PT,PROTHROMBIN TIME [[facility]] AM - Plan Plan:: Assessment and plan - Right lung pneumonia with sepsis and acute hypoxic respiratory failure - respiratory status has been stable, cultures remained negative. -Levofloxacin 750 mg by mouth daily -Prednisone 40 mg by mouth daily -Nebulizers -Supplemental oxygen Paroxysmal atrial fibrillation - rate control is improved significantly over the past 24 hours with use of metoprolol and Cardizem. -Restart beta anibal -Cardizem CD 120 mg by mouth daily Parkinson's disease - significant limitation of functional status at baseline. He is nearly bedbound other than short walks once or twice a day. -Continue home medications -Start physical therapy as soon as sepsis resolves Normal pressure hydrocephalus - Further complicates his functional status with balance issues. -Physical therapy as able Maintenance issues - - DVT prophylaxis - enoxaparin - GI prophylaxis - PPI - Nutrition - regular diet Disposition - anticipate discharge back to the snf tomorrow
[2017-03-08] MEDS: Diltiazem 120 MG Cap.CD PO SCH (10:43)
[2017-03-08] MEDS ORDERED: Warfarin 5 MG Tab PO ONE (13:00)
[2017-03-08] MEDS: Mirtazapine 15 MG Tab PO SCH (20:31)
[2017-03-09] MEDS: Levalbuterol HCl 1.25 MG/3 ML Neb NEB SCH ×2 (07:18→10:50)
[2017-03-09] MEDS: predniSONE 20 MG Tab PO SCH (08:02)
[2017-03-09] MEDS: Pantoprazole 40 MG Tab.CR PO SCH (08:03)
[2017-03-09] MEDS: Tamsulosin 0.4 MG Cap.ER PO SCH (09:15)
[2017-03-09] MEDS: Furosemide 40 MG Tab PO SCH (09:15)
[2017-03-09] MEDS: Metoprolol Tartrate 50 MG Tab PO SCH (09:15)
[2017-03-09] MEDS: Spironolactone 25 MG Tab PO SCH (09:15)
[2017-03-09] MEDS: Diltiazem 120 MG Cap.CD PO SCH (09:15)
[2017-03-09] MEDS: Carbidopa/Levodopa 25-100 MG Tab PO SCH (09:15)
[2017-03-09] MEDS: Potassium Chloride 20 MEQ Tab.ER PO SCH (09:16)
[2017-03-09] MEDS: Folic Acid 1 MG Tab PO SCH (09:16)
[2017-03-09] MEDS: Enoxaparin 40 MG/0.4 ML Syringe SUBCUT SCH (09:23)
[2017-03-09] MEDS ORDERED: Sodium Phosphate,Monobasic/Sodium Phosphate,Dibasic Enema 133 ML Bottle RECTAL PRN (10:07)
[2017-03-09] MEDS ORDERED: Bisacodyl 10 MG Supp RECTAL ONE (10:07)
[2017-03-09 11:25] VITALS: BP 117/90
--- NOTE | 2017-03-09 11:59 | PCM.DCSUM1 ---
Discharge Summary - Hospital Course Brief History: This patient is an 86-year-old gentleman who is admitted through the emergency room with increased shortness of breath and cough secondary to a right lung pneumonia. - Discharge Data Discharge Date: 03/09/17 Discharge Disposition: DC/Tfer to SNF 03 Condition: Fair - Discharge Diagnosis/Problem(s) (1) Right lower lobe pneumonia SNOMED Code(s): 816996280 ICD Code: J18.1 - LOBAR PNEUMONIA, UNSPECIFIED ORGANISM Status: Acute Current Visit: Yes Qualifiers: Pneumonia type: due to unspecified organism Qualified Code(s): J18.1 - Lobar pneumonia, unspecified organism (2) Parkinsons disease SNOMED Code(s): 47406296 ICD Code: G20 - PARKINSON'S DISEASE Status: Chronic Current Visit: Yes (3) Normal pressure hydrocephalus SNOMED Code(s): 40646388 ICD Code: G91.2 - (IDIOPATHIC) NORMAL PRESSURE HYDROCEPHALUS Status: Chronic Current Visit: Yes (4) Coronary arteriosclerosis, CAD SNOMED Code(s): 58146951 ICD Code: I25.10 - ATHSCL HEART DISEASE OF [place] CORONARY ARTERY W/O ANG PCTRS Status: Chronic Current Visit: No (5) Atrial fibrillation with rapid ventricular response SNOMED Code(s): 921473992272952 ICD Code: I48.91 - UNSPECIFIED ATRIAL FIBRILLATION Status: Acute Current Visit: Yes - Patient Summary/Data Hospital Course: Mr. Chu is an 86-year-old gentleman who resides at the [facility] because of underlying Parkinson's disease and normal pressure hydrocephalus. He developed fever with cough and shortness of breath at the [facility] and was brought to the emergency department for further evaluation. White blood cell count was elevated and he was found to have a right lung infiltrate on chest x-ray. Cultures were obtained and he was admitted, given IV fluids, and IV antibiotic therapy. In addition was treated with nebulizers and IV Solu- Medrol. Initial hospital course was complicated by atrial fibrillation with rapid ventricular response. He was treated with rate slowing medication but remained in atrial fibrillation throughout his hospital stay. He was started on anticoagulation because of risk of CVA associated with the atrial fibrillation. He will be discharged on 5 mg of warfarin per day and should have followup INR obtained on March 12. IV and oral steroids were stopped at the time of discharge, he will be on an additional 4 days of oral antibiotic therapy with levofloxacin. Activity will be as tolerated and he will resume his usual diet. Followup will be at the [facility] as needed. - Patient Instructions Diet: Diabetic Diet Activity: As Tolerated - Discharge Plan Prescriptions/Med Rec: Diltiazem HCl [Cardizem Cd] 120 mg PO DAILY #30 cap.er.24h Levofloxacin [Levaquin] 500 mg PO Q24H #4 tablet Home Medications: Home Meds Folic Acid 1 mg PO DAILY 03/25/14 [History] Metoprolol Tartrate 50 mg PO BID 03/25/14 [History] Acetaminophen [Tylenol] 650 mg PO QID PRN 05/17/15 [History] Bisacodyl 5 mg PO DAILY 03/03/17 [History] Captopril 6.25 mg PO BID 03/03/17 [History] Carbidopa/Levodopa [Sinemet 25-100 mg Tablet] 1 tab PO TID 03/03/17 [History] Cholecalciferol (Vitamin D3) [Vitamin D3] 1,000 units PO DAILY 03/03/17 [History ] Folic Acid 1 mg PO DAILY 03/03/17 [History] Furosemide 40 mg PO DAILY 03/03/17 [History] Hydrocodone/Acetaminophen [Hydrocodon-Acetaminophen 5-325] 1 each PO Q4H PRN [History] Methotrexate Sodium [Trexall] 7.5 mg PO WEEKLY 03/03/17 [History] Metoprolol Tartrate 25 mg PO BID 03/03/17 [History] Mirtazapine 7.5 mg PO BEDTIME 03/03/17 [History] Polyethylene Glycol 3350 [Smoothlax] 17 g PO DAILY 03/03/17 [History] Potassium Chloride 20 meq PO DAILY 03/03/17 [History] Sennosides/Docusate Sodium [Senna-Docusate Sodium] 2 tab PO BID 03/03/17 [ History] Spironolactone 12.5 tab PO DAILY 03/03/17 [History] Tamsulosin [Flomax] 0.4 mg PO DAILY 03/03/17 [History] predniSONE [Prednisone] 10 mg PO DAILY 03/03/17 [History] Diltiazem HCl [Cardizem Cd] 120 mg PO DAILY #30 cap.er.24h 03/09/17 [Rx] Levofloxacin [Levaquin] 500 mg PO Q24H #4 tablet 03/09/17 [Rx] Patient Handouts: Shortness of Breath, [id number] Referrals: Mario Antoine MD [Primary Care Provider] - - Patient Data Vitals - Most Recent: Last Vital Signs Temp 95.2 F L 03/09/17 11:21 Pulse 107 H 03/09/17 11:21 Resp 20 03/09/17 11:21 BP 117/90 03/09/17 11:21 Pulse Ox 97 03/09/17 07:31 Weight - Most Recent: 216 lb 14.958 oz I&O - Last 24 hours: Intake & Output 03/08/17 03/09/17 03/09/17 22:59 06:59 14:59 Intake Total 240 Balance 240 Lab Results - Last 24 hrs: Laboratory Results - last 24 hr 03/09/17 Range/Units 05:37 PT 13.8 H (9.5-12.0) sec INR 1.29 H (0.80-1.20) Med Orders - Current: Current Medications Acetaminophen (Tylenol) 650 mg PO Q4H PRN PRN Reason: Pain (Mild 1-3)/fever Last Admin: 03/04/17 07:45 Dose: 650 mg Hydrocodone Bitart/Acetaminophen ([place] 325-5 Mg) 1 tab PO Q4H PRN PRN Reason: Pain Captopril (Capoten) 6.25 mg PO BID [facility] Last Admin: 03/09/17 09:24 Dose: 6.25 mg Carbidopa/Levodopa (Sinemet 25-100 Mg) 1 tab PO TID [facility] Last Admin: 03/09/17 09:15 Dose: 1 tab Diltiazem HCl (Cardizem Cd) 120 mg PO DAILY [facility] Last Admin: 03/09/17 09:15 Dose: 120 mg Enoxaparin Sodium (Lovenox) 40 mg SUBCUT DAILY [facility] Last Admin: 03/09/17 09:23 Dose: 40 mg Folic Acid (Folic Acid) 1 mg PO DAILY [facility] Last Admin: 03/09/17 09:16 Dose: 1 mg Furosemide (Lasix) 40 mg PO DAILY [facility] Last Admin: 03/09/17 09:15 Dose: 40 mg Levalbuterol HCl (Xopenex) 1.25 mg NEB QIDRT [facility] Last Admin: 03/09/17 10:50 Dose: 1.25 mg Levalbuterol HCl (Xopenex) 1.25 mg NEB Q2H PRN PRN Reason: Shortness of Breath Levofloxacin 500 mg/ (Levofloxacin 250 mg) 750 mg PO Q24H [facility] Last Admin: 03/09/17 10:37 Dose: 750 mg Metoprolol Tartrate (Lopressor) 50 mg PO Q12H [facility] Last Admin: 03/09/17 09:15 Dose: 50 mg Mirtazapine (Remeron) 7.5 mg PO BEDTIME [facility] Last Admin: 03/08/17 20:31 Dose: 7.5 mg Ondansetron HCl (Zofran Odt) 4 mg PO Q6H PRN PRN Reason: Nausea able to take PO Ondansetron HCl (Zofran) 4 mg IV Q6H PRN PRN Reason: Nausea/Vomiting Pantoprazole Sodium (Protonix) 40 mg PO ACBREAKFAST [facility] Last Admin: 03/09/17 08:03 Dose: 40 mg Potassium Chloride (Klor-Con M20) 20 meq PO DAILY [facility] Last Admin: 03/09/17 09:16 Dose: 20 meq Prednisone (Prednisone) 40 mg PO WITHBREAKFAST [facility] Last Admin: 03/09/17 08:02 Dose: 40 mg Senna/Docusate Sodium (Senna Plus) 2 tab PO BID [facility] Last Admin: 03/09/17 09:16 Dose: 2 tab Sodium Biphosphate/Sodium Phosphate (Fleet Enema) 133 ml RECTAL ONETIME PRN PRN Reason: Constipation Sodium Chloride (Saline Flush) 10 ml FLUSH ASDIRECTED PRN PRN Reason: Keep Vein Open Last Admin: 03/03/17 13:08 Dose: 10 ml Spironolactone (Aldactone) 25 mg PO DAILY [facility] Last Admin: 03/09/17 09:15 Dose: 25 mg Tamsulosin HCl (Flomax) 0.4 mg PO DAILY [facility] Last Admin: 03/09/17 09:15 Dose: 0.4 mg Warfarin Sodium (Coumadin) 5 mg PO ONETIME ONE Stop: 03/09/17 12:01 Discontinued Medications Albuterol (Proventil Neb Soln) 2.5 mg NEB Q4H PRN PRN Reason: Shortness Of Breath/wheezing Albuterol/Ipratropium (Duoneb 3.0-0.5 Mg/3 Ml) 3 ml NEB QIDRT [facility] Last Admin: 03/04/17 07:12 Dose: 3 ml Benzonatate (Tessalon Perles) 100 mg PO TID PRN PRN Reason: Cough Bisacodyl (Dulcolax) 10 mg RECTAL ONETIME ONE Stop: 03/09/17 10:08 Last Admin: 03/09/17 10:37 Dose: 10 mg Digoxin (Lanoxin) 125 mcg IVPUSH ONETIME ONE Stop: 03/04/17 09:01 Last Admin: 03/04/17 09:02 Dose: 125 mcg Diltiazem HCl (Cardizem) 30 mg PO Q6H [facility] Last Admin: 03/08/17 09:03 Dose: 30 mg Guaifenesin/Dextromethorphan (Robitussin Dm) 10 ml PO Q4H PRN PRN Reason: Cough Last Admin: 03/04/17 15:16 Dose: 10 ml Hydrocortisone Sodium Succinate (Solu-Cortef) 100 mg IVPUSH ONETIME ONE Stop: 03/03/17 16:01 Last Admin: 03/03/17 15:52 Dose: 100 mg Lactated Ringer's (Ringers, Lactated) 1,000 mls @ 999 mls/hr IV BOLUS ONE Stop: 03/03/17 13:50 Last Admin: 03/03/17 13:08 Dose: 999 mls/hr Ceftriaxone Sodium 2 gm/ (Sodium Chloride) 50 mls @ 100 mls/hr IV ONETIME ONE Stop: 03/03/17 13:21 Last Admin: 03/03/17 13:08 Dose: 100 mls/hr Levofloxacin/Dextrose 750 mg/ (Premix) 150 mls @ 100 mls/hr IV Q24H [facility] Last Admin: 03/07/17 16:36 Dose: 100 mls/hr Sodium Chloride (Normal Saline) 1,000 mls @ 125 mls/hr IV ASDIRECTED [facility] Last Admin: 03/05/17 06:25 Dose: 125 mls/hr Sodium Chloride (Normal Saline) 1,000 mls @ 999 mls/hr IV ASDIRECTED [facility] Stop: 03/03/17 16:54 Last Admin: 03/03/17 15:04 Dose: 999 mls/hr Ceftriaxone Sodium 2 gm/ (Sodium Chloride) 50 mls @ 100 mls/hr IV Q24H [facility] Last Admin: 03/06/17 14:34 Dose: 100 mls/hr Sodium Chloride (Normal Saline) 1,000 mls @ 999 mls/hr IV ASDIRECTED [facility] Stop: 03/03/17 18:31 Last Admin: 03/03/17 18:05 Dose: 999 mls/hr Vancomycin HCl 1.5 gm/ Sodium (Chloride) 250 mls @ 150 mls/hr IV Q12H [facility] Last Admin: 03/06/17 09:45 Dose: 150 mls/hr Vancomycin HCl 2 gm/ Sodium (Chloride) 250 mls @ 150 mls/hr IV ONETIME ONE Stop: 03/04/17 10:39 Last Admin: 03/04/17 09:15 Dose: 150 mls/hr Methylprednisolone Sodium Succinate (Solu-Medrol) 125 mg IVPUSH ONETIME ONE Stop: 03/04/17 09:01 Last Admin: 03/04/17 09:12 Dose: 125 mg Methylprednisolone Sodium Succinate (Solu-Medrol) 62.5 mg IVPUSH Q6H [facility] Last Admin: 03/05/17 08:00 Dose: 62.5 mg Methylprednisolone Sodium Succinate (Solu-Medrol) 40 mg IVPUSH Q8H [facility] Last Admin: 03/07/17 08:48 Dose: 40 mg Metoprolol Tartrate (Lopressor) 25 mg PO ONETIME ONE Stop: 03/03/17 22:12 Last Admin: 03/03/17 22:23 Dose: 25 mg Metoprolol Tartrate (Lopressor) 25 mg PO BID [facility] Prednisone (Prednisone) 20 mg PO DAILY [facility] Last Admin: 03/05/17 08:03 Dose: 20 mg Warfarin Sodium (Coumadin) 5 mg PO ONETIME ONE Stop: 03/08/17 13:01 Last Admin: 03/08/17 13:00 Dose: 5 mg *Q Meaningful Use (DIS) - VTE *Q VTE Criteria *Q: - Stroke *Q Stroke Criteria *Q: - AMI *Q AMI Criteria *Q:
[2017-03-09] MEDS ORDERED: Warfarin 5 MG Tab PO ONE (12:00)
== END 2017-03-09 13:08 | DRG 871 ==
LOC: JP.ED 11:09 → JP.ICU 13:59 → JP.MS 03-08 15:30
PROVIDERS: ADMIT Internal Medicine; ATTEND Hospitalist
DX: A41.9 Sepsis, unspecified organism (principal); J18.1 Lobar pneumonia, unspecified organism; J96.01 Acute respiratory failure with hypoxia; G91.2 (Idiopathic) normal pressure hydrocephalus; G20 Parkinson's disease; I25.10 Atherosclerotic heart disease of native coronary artery without angina pectoris; Z79.52 Long term (current) use of systemic steroids; I10 Essential (primary) hypertension; N40.0 Benign prostatic hyperplasia without lower urinary tract symptoms; M06.9 Rheumatoid arthritis, unspecified; F32.9 Major depressive disorder, single episode, unspecified; Z79.01 Long term (current) use of anticoagulants; I48.0 Paroxysmal atrial fibrillation
CPT/HCPCS: 36415; 71020 ×2; 80053; 83605; 85025; 85610; 85730; 87040 ×2; 96361; 96365; 99285 ×2; J0696; J7050 ×2; J7120; 80048; 80202; 82607; 82746; 85027; 87070; 87205; 87804; 94640-76; A9270-GY; J1160; J1650; J1720; J1956; J2920; J2930; J3370; J7040; J7620